=== PATIENT | male | born 1975 | race Caucasian/White ===

== ENCOUNTER 2017-07-13 17:29 | Inpatient (IN) | payer OTHER ==
[~2017-07-13] VITALS: Ht 175.3 cm; Wt 62.5 kg
[~2017-07-13 17:29] MED LIST: LEVEMIR100 U/ML SQ; NICORETTE GUM2 MG BC; NOVLOG SQ
[2017-07-13 18:29] LABS: MAGNESIUM 1.8 mg/dL (1.6-2.3)
[2017-07-13 18:35] VITALS: BP 134/97; PULSE 89; TEMP 97.8
[2017-07-13 20:00] VITALS: BP 138/99; PULSE 67; TEMP 97.5
[2017-07-13 21:05] LABS: CALCIUM 8.2 mg/dL (8.4-10.2); CREATININE, serum 0.56 mg/dL (0.66-1.25); POTASSIUM 3.6 mmol/L (3.4-5.0)
[2017-07-14] VITALS: BP 104/66; PULSE 61; TEMP 97.7
[2017-07-14 04:00] VITALS: BP 102/78; PULSE 69; TEMP 97.4
[2017-07-14 06:00] LABS: BASO # 0.1 (0.0-0.2); BASO % 0.5 % (0.0-2.0); EOS # 0.3 (0.0-0.7); EOS % 1.8 % (0-4.0); GRAN # 9.9 (1.4-6.5); GRAN % 67.6 % (42.2-75.2); HEMATOCRIT 41.1 % (42.0-52.0); HEMOGLOBIN 14.7 g/dl (13.5-18.0); LYMPH # 3.2 (1.2-3.4); LYMPH % 21.6 % (20.0-51.0); MEAN CELL VOLUME 86 fl (80.0-100.0); MEAN CORPUSCULAR HEMOGLOBIN 31 pg (27.0-31.0); MEAN CORPUSCULAR HGB CONC 36 g/dl (33.0-37.0); MEAN PLATELET VOLUME 8.7 fl (7.4-10.4); MONO # 1.2 (0.1-0.6); MONO % 8.1 % (1.7-9.3); PLATELET COUNT 334 K/mm3 (130-400); RED BLOOD COUNT 4.79 M/mm3 (4.20-5.60); REDCELL DISTRIBUTION WIDTH-CV 11.8 % (11.5-14.5)
[2017-07-14 06:14] LABS: CALCIUM 8.6 mg/dL (8.4-10.2); CREATININE, serum 0.65 mg/dL (0.66-1.25); POTASSIUM 3.2 mmol/L (3.4-5.0)
[2017-07-14 07:45] VITALS: BP 107/82; PULSE 61; TEMP 98
[2017-07-14 11:40] VITALS: BP 125/84; PULSE 65; TEMP 97.5
[2017-07-14 16:48] VITALS: BP 123/87; PULSE 76; TEMP 98.3
[2017-07-14 19:37] VITALS: BP 118/74; PULSE 72; TEMP 98
[2017-07-15] VITALS (7 sets, daily range): BP systolic 104–126; BP diastolic 54–89; PULSE 65–81; TEMP 97.6–98.4
[2017-07-15 06:42] LABS: BASO # 0.1 (0.0-0.2); BASO % 0.5 % (0.0-2.0); EOS # 0.2 (0.0-0.7); EOS % 1.9 % (0-4.0); GRAN # 7.2 (1.4-6.5); HEMATOCRIT 40.3 % (42.0-52.0); HEMOGLOBIN 14.5 g/dl (13.5-18.0); LYMPH # 2.8 (1.2-3.4); LYMPH % 25.4 % (20.0-51.0); MEAN CELL VOLUME 85 fl (80.0-100.0); MEAN CORPUSCULAR HEMOGLOBIN 31 pg (27.0-31.0); MEAN CORPUSCULAR HGB CONC 36 g/dl (33.0-37.0); MONO # 0.8 (0.1-0.6); MONO % 6.8 % (1.7-9.3); PLATELET COUNT 327 K/mm3 (130-400); RED BLOOD COUNT 4.74 M/mm3 (4.20-5.60); REDCELL DISTRIBUTION WIDTH-CV 11.6 % (11.5-14.5)
[2017-07-15 06:51] LABS: ALANINE AMINOTRANSFERASE 31 U/L (21-72); ALKALINE PHOSPHATASE 78 U/L (50-136); ANION GAP 12 mmol/L (7-16); AST,SGOT 21 U/L (15-37); BILIRUBIN,TOTAL < 0.1 mg/dL (0.0-1.0); BLOOD UREA NITROGEN 12 mg/dL (9-20); CALCIUM 8.5 mg/dL (8.4-10.2); CARBON DIOXIDE 27 mmol/L (22-30); CHLORIDE 98 mmol/L (98-107); CREATININE, serum 0.61 mg/dL (0.66-1.25); GLUCOSE 256 mg/dL (74-106); MAGNESIUM 1.9 mg/dL (1.6-2.3); POTASSIUM 3.5 mmol/L (3.4-5.0); SODIUM 137 mmol/L (137-145); TOTAL PROTEIN 5.6 gm/dL (6.4-8.2)
[2017-07-16 03:53] VITALS: BP 102/55; PULSE 68; TEMP 97.8
[2017-07-16 06:48] LABS: BASO # 0.1 (0.0-0.2); BASO % 0.9 % (0.0-2.0); EOS # 0.2 (0.0-0.7); EOS % 2.1 % (0-4.0); GRAN # 6.1 (1.4-6.5); GRAN % 59.3 % (42.2-75.2); HEMATOCRIT 40.5 % (42.0-52.0); HEMOGLOBIN 14.2 g/dl (13.5-18.0); LYMPH # 3.1 (1.2-3.4); LYMPH % 29.8 % (20.0-51.0); MEAN CELL VOLUME 88 fl (80.0-100.0); MEAN CORPUSCULAR HEMOGLOBIN 31 pg (27.0-31.0); MEAN CORPUSCULAR HGB CONC 35 g/dl (33.0-37.0); MEAN PLATELET VOLUME 9.2 fl (7.4-10.4); MONO # 0.8 (0.1-0.6); MONO % 7.6 % (1.7-9.3); PLATELET COUNT 329 K/mm3 (130-400); RED BLOOD COUNT 4.62 M/mm3 (4.20-5.60)
[2017-07-16 07:01] LABS: CALCIUM 8.6 mg/dL (8.4-10.2); CREATININE, serum 0.75 mg/dL (0.66-1.25); POTASSIUM 3.3 mmol/L (3.4-5.0)
[2017-07-16 07:38] VITALS: BP 111/57; PULSE 70; TEMP 97.9
[2017-07-16] MEDS ORDERED: LANCETS MC (10:55)
[2017-07-16] MEDS ORDERED: FREESTYLE PREC1 EAC5 MC (10:55)
[2017-07-16] MEDS ORDERED: GLUCOSE TEST ST1 DEV MC (10:55)
[2017-07-16] MEDS ORDERED: LEVEMIR100 U/ML SQ (10:57)
[2017-07-16] MEDS ORDERED: DOXYCYCLINE 10100 MG PO (10:58)
[2017-07-16 11:31] VITALS: BP 122/84; PULSE 75; TEMP 98.2
[2017-07-16] MEDS ORDERED: AMOXICILLIN 8751 TAB PO (12:36)
== END 2017-07-16 15:00 | disposition home or self-care (01) | DRG 638 ==
LOC: ICU 17:29 → MEDICAL 07-14 19:19
PROVIDERS: Internal Medicine; Nurse Practitioner; Physician Assistant
DX: E11.65 Type 2 diabetes mellitus with hyperglycemia (principal); L03.317 Cellulitis of buttock; E44.0 Moderate protein-calorie malnutrition; Z68.1 Body mass index [BMI] 19.9 or less, adult; L05.91 Pilonidal cyst without abscess; E87.6 Hypokalemia; F15.10 Other stimulant abuse, uncomplicated; Z91.14 Patient's other noncompliance with medication regimen; Z79.4 Long term (current) use of insulin; F17.210 Nicotine dependence, cigarettes, uncomplicated; Z59.0 Homelessness
CPT/HCPCS: 99223-AI; 99232-AI; 99239; J1650; J1815; J2543; J3370; J7050; J7070; Q9967

== ENCOUNTER 2017-08-19 16:29 | Emergency (ER) | payer OTHER ==
[~2017-08-19] VITALS: Ht 175.3 cm; Wt 63.6 kg
[~2017-08-19 16:29] MED LIST changes: +AMOXICILLIN 8751 TAB PO; +DOXYCYCLINE 10100 MG PO; +FREESTYLE PREC1 EAC5 MC; +GLUCOSE TEST ST1 DEV MC; +LANCETS MC
[2017-08-19 16:35] VITALS: TEMP 97.5
[2017-08-19 17:18] LABS: BASO # 0.1 (0.0-0.2); BASO % 0.5 % (0.0-2.0); EOS # 0.1 (0.0-0.7); EOS % 0.9 % (0-4.0); GRAN # 9.8 (1.4-6.5); GRAN % 70.1 % (42.2-75.2); HEMATOCRIT 46.7 % (42.0-52.0); HEMOGLOBIN 16.3 g/dl (13.5-18.0); LYMPH % 21.6 % (20.0-51.0); MEAN CELL VOLUME 88 fl (80.0-100.0); MEAN CORPUSCULAR HEMOGLOBIN 31 pg (27.0-31.0); MEAN CORPUSCULAR HGB CONC 35 g/dl (33.0-37.0); MEAN PLATELET VOLUME 8.5 fl (7.4-10.4); MONO # 0.9 (0.1-0.6); MONO % 6.1 % (1.7-9.3); PLATELET COUNT 326 K/mm3 (130-400); RED BLOOD COUNT 5.34 M/mm3 (4.20-5.60); REDCELL DISTRIBUTION WIDTH-CV 12.8 % (11.5-14.5)
[2017-08-19 17:26] LABS: ALANINE AMINOTRANSFERASE 26 U/L (21-72); ALBUMIN 4.5 gm/dL (3.5-5.0); ALKALINE PHOSPHATASE 117 U/L (50-136); ANION GAP 15 mmol/L (7-16); AST,SGOT 23 U/L (15-37); BILIRUBIN,TOTAL 0.7 mg/dL (0.0-1.0); BLOOD UREA NITROGEN 30 mg/dL (9-20); CALCIUM 10.9 mg/dL (8.4-10.2); CARBON DIOXIDE 26 mmol/L (22-30); CHLORIDE 97 mmol/L (98-107); CREATININE, serum 1.09 mg/dL (0.66-1.25); GLUCOSE 155 mg/dL (74-106); POTASSIUM 4.3 mmol/L (3.4-5.0); SODIUM 138 mmol/L (137-145); TOTAL PROTEIN 8.1 gm/dL (6.4-8.2)
[2017-08-19 17:29] LABS: C-REACTIVE PROTEIN < 0.5 mg/dL (0.0-0.9)
[2017-08-19 17:37] LABS: ACETONE,SERUM NEGATIVE
[2017-08-19 17:58] LABS: COLLECTION METHOD CLEAN CATCH
[2017-08-19 18:13] LABS: HYALINE CAST >12 /lpf; MUCOUS Present /lpf; PH 5 (5-8); SQUAMOUS EPITHELIAL 0-2 /hpf; URINE APPEARANCE Hazy; URINE BACTERIA None Seen /hpf; URINE BILIRUBIN Negative (NEGATIVE); URINE BLOOD 2+ (NEGATIVE); URINE COLOR Yellow; URINE GLUCOSE 2+ (NEGATIVE); URINE KETONE Negative (NEGATIVE); URINE LEUKOCYTE ESTERASE Negative (NEGATIVE); URINE NITRATE Negative (NEGATIVE); URINE PROTEIN(semi-quant) 1+ (NEGATIVE); URINE RBC 0-2 /hpf
[2017-08-19 19:29] VITALS: BP 1416/72; PULSE 81
== END 2017-08-19 19:34 | disposition home or self-care (01) ==
LOC: COL.ER 16:29
PROVIDERS: Emergency Medicine
DX: E11.9 Type 2 diabetes mellitus without complications (principal); F17.210 Nicotine dependence, cigarettes, uncomplicated; Z79.4 Long term (current) use of insulin
CPT/HCPCS: J7030

== ENCOUNTER 2017-10-01 18:53 | Inpatient (IN) | payer OTHER ==
[2017-10-01] VITALS (65 sets, daily range): BP systolic 123; BP diastolic 81; PULSE 84; TEMP 97.8; O2SAT 97–100
[~2017-10-01] VITALS: Ht 175.3 cm; Wt 65.2 kg
[2017-10-01 19:29] LABS: COLLECTION METHOD CLEAN CATCH
[2017-10-01 19:34] LABS: BASO # 0.1 (0.0-0.2); BASO % 0.4 % (0.0-2.0); EOS # 0.1 (0.0-0.7); EOS % 0.4 % (0-4.0); GRAN # 11.5 (1.4-6.5); GRAN % 83.8 % (42.2-75.2); HEMOGLOBIN 16.1 g/dl (13.5-18.0); LYMPH # 1.3 (1.2-3.4); LYMPH % 9.5 % (20.0-51.0); MEAN CELL VOLUME 87 fl (80.0-100.0); MEAN CORPUSCULAR HEMOGLOBIN 31 pg (27.0-31.0); MEAN CORPUSCULAR HGB CONC 36 g/dl (33.0-37.0); MEAN PLATELET VOLUME 8.7 fl (7.4-10.4); MONO # 0.7 (0.1-0.6); MONO % 5.2 % (1.7-9.3); PLATELET COUNT 332 K/mm3 (130-400); RED BLOOD COUNT 5.19 M/mm3 (4.20-5.60); REDCELL DISTRIBUTION WIDTH-CV 12.9 % (11.5-14.5)
[2017-10-01 19:36] LABS: MUCOUS Present /lpf; PH 5 (5-8); SQUAMOUS EPITHELIAL None Seen /hpf; URINE APPEARANCE Clear; URINE BACTERIA None Seen /hpf; URINE BILIRUBIN Negative (NEGATIVE); URINE BLOOD Negative (NEGATIVE); URINE COLOR Straw; URINE GLUCOSE 3+ (NEGATIVE); URINE KETONE 2+ (NEGATIVE); URINE LEUKOCYTE ESTERASE Negative (NEGATIVE); URINE NITRATE Negative (NEGATIVE); URINE PROTEIN(semi-quant) Negative (NEGATIVE); URINE RBC 0-2 /hpf; URINE UROBILINOGEN Negative (NEGATIVE)
[2017-10-01 19:44] LABS: ALANINE AMINOTRANSFERASE 33 U/L (21-72); ALBUMIN 4.8 gm/dL (3.5-5.0); ALKALINE PHOSPHATASE 132 U/L (50-136); ANION GAP 24 mmol/L (7-16); AST,SGOT 22 U/L (15-37); BILIRUBIN,TOTAL 0.8 mg/dL (0.0-1.0); BLOOD UREA NITROGEN 21 mg/dL (9-20); CALCIUM 9.3 mg/dL (8.4-10.2); CREATININE, serum 0.78 mg/dL (0.66-1.25); LIPASE 122 U/L (23-300); POTASSIUM 5.4 mmol/L (3.4-5.0); TOTAL PROTEIN 7.7 gm/dL (6.4-8.2)
[2017-10-01 19:47] LABS: CARBON DIOXIDE 10 mmol/L (22-30); CHLORIDE 85 mmol/L (98-107); SODIUM 119 mmol/L (137-145)
[2017-10-01 19:52] LABS: GLUCOSE 768 mg/dL (74-106)
[2017-10-01 19:55] LABS: ACETONE,SERUM LARGE
[2017-10-01 23:12] LABS: CALCIUM 8.3 mg/dL (8.4-10.2); CREATININE, serum 0.61 mg/dL (0.66-1.25); MAGNESIUM 1.9 mg/dL (1.6-2.3); PHOSPHOROUS 2.5 mg/dL (2.5-4.5); POTASSIUM 3.8 mmol/L (3.4-5.0)
[2017-10-02] VITALS (629 sets, daily range): BP systolic 105–128; BP diastolic 59–89; PULSE 65–90; TEMP 96.9–98.1; O2SAT 94–100
[2017-10-02 01:48] LABS: CALCIUM 8.2 mg/dL (8.4-10.2); CREATININE, serum 0.58 mg/dL (0.66-1.25); POTASSIUM 3.9 mmol/L (3.4-5.0)
[2017-10-02 03:34] LABS: CALCIUM 8.1 mg/dL (8.4-10.2); CREATININE, serum 0.52 mg/dL (0.66-1.25); POTASSIUM 3.6 mmol/L (3.4-5.0)
[2017-10-02 06:08] LABS: CALCIUM 8.4 mg/dL (8.4-10.2); CREATININE, serum 0.54 mg/dL (0.66-1.25); POTASSIUM 3.5 mmol/L (3.4-5.0)
[2017-10-02 07:51] LABS: CALCIUM 8.2 mg/dL (8.4-10.2); CREATININE, serum 0.49 mg/dL (0.66-1.25)
[2017-10-02 10:07] LABS: CALCIUM 8.1 mg/dL (8.4-10.2); CREATININE, serum 0.54 mg/dL (0.66-1.25)
[2017-10-02 11:41] LABS: CREATININE, serum 0.54 mg/dL (0.66-1.25); POTASSIUM 4.3 mmol/L (3.4-5.0)
[2017-10-02 13:43] LABS: CALCIUM 8.2 mg/dL (8.4-10.2); CREATININE, serum 0.53 mg/dL (0.66-1.25); POTASSIUM 3.6 mmol/L (3.4-5.0)
[2017-10-02 16:16] LABS: CALCIUM 8.1 mg/dL (8.4-10.2); CREATININE, serum 0.61 mg/dL (0.66-1.25); POTASSIUM 3.6 mmol/L (3.4-5.0)
[2017-10-02 17:52] LABS: CALCIUM 8.2 mg/dL (8.4-10.2); CREATININE, serum 0.67 mg/dL (0.66-1.25); POTASSIUM 3.5 mmol/L (3.4-5.0)
[2017-10-02 19:39] LABS: CREATININE, serum 0.7 mg/dL (0.66-1.25); POTASSIUM 3.7 mmol/L (3.4-5.0)
[2017-10-03] VITALS (291 sets, daily range): BP systolic 113–130; BP diastolic 66–84; PULSE 65–79; TEMP 97.3–98.6; O2SAT 83–100
[2017-10-03 05:18] LABS: BASO # 0.1 (0.0-0.2); BASO % 0.6 % (0.0-2.0); EOS # 0.1 (0.0-0.7); EOS % 1.3 % (0-4.0); GRAN # 5.9 (1.4-6.5); GRAN % 61.4 % (42.2-75.2); LYMPH # 2.7 (1.2-3.4); LYMPH % 27.5 % (20.0-51.0); MEAN CELL VOLUME 86 fl (80.0-100.0); MEAN CORPUSCULAR HGB CONC 36 g/dl (33.0-37.0); MEAN PLATELET VOLUME 8.5 fl (7.4-10.4); MONO # 0.9 (0.1-0.6); MONO % 8.9 % (1.7-9.3); RED BLOOD COUNT 4.03 M/mm3 (4.20-5.60); REDCELL DISTRIBUTION WIDTH-CV 12.9 % (11.5-14.5)
[2017-10-03 05:19] LABS: HEMATOCRIT 34.8 % (42.0-52.0); HEMOGLOBIN 12.4 g/dl (13.5-18.0); MEAN CORPUSCULAR HEMOGLOBIN 31 pg (27.0-31.0); PLATELET COUNT 186 K/mm3 (130-400)
[2017-10-03 05:28] LABS: CALCIUM 8.2 mg/dL (8.4-10.2); CREATININE, serum 0.53 mg/dL (0.66-1.25); POTASSIUM 3.4 mmol/L (3.4-5.0)
[2017-10-04 00:05] VITALS: BP 125/71; PULSE 61; TEMP 97.6
[2017-10-04 03:59] VITALS: BP 103/62; BP 97/60; PULSE 63; TEMP 97.9
[2017-10-04 06:21] LABS: BASO # 0.1 (0.0-0.2); BASO % 0.5 % (0.0-2.0); EOS # 0.1 (0.0-0.7); EOS % 1.1 % (0-4.0); GRAN # 6.4 (1.4-6.5); HEMATOCRIT 37.7 % (42.0-52.0); HEMOGLOBIN 13.2 g/dl (13.5-18.0); LYMPH % 21.1 % (20.0-51.0); MEAN CELL VOLUME 87 fl (80.0-100.0); MEAN CORPUSCULAR HEMOGLOBIN 31 pg (27.0-31.0); MEAN CORPUSCULAR HGB CONC 35 g/dl (33.0-37.0); MEAN PLATELET VOLUME 9.9 fl (7.4-10.4); MONO # 0.7 (0.1-0.6); MONO % 7.9 % (1.7-9.3); PLATELET COUNT 178 K/mm3 (130-400); RED BLOOD COUNT 4.32 M/mm3 (4.20-5.60); REDCELL DISTRIBUTION WIDTH-CV 12.7 % (11.5-14.5)
[2017-10-04 06:37] LABS: CREATININE, serum 0.57 mg/dL (0.66-1.25)
[2017-10-04 06:46] LABS: POTASSIUM 2.9 mmol/L (3.4-5.0)
[2017-10-04 07:57] VITALS: BP 115/63; PULSE 52; TEMP 97.4
[2017-10-04] MEDS ORDERED: LEVEMIR FLEX100 U/ML SQ (08:51)
[2017-10-04 11:17] VITALS: BP 110/72; PULSE 86; TEMP 97.8
== END 2017-10-04 15:56 | disposition home or self-care (01) | DRG 638 ==
LOC: COL.ER 18:53 → ICU 20:56 → MEDICAL 10-03 13:08
PROVIDERS: Emergency Medicine; Internal Medicine; Nurse Practitioner Family
DX: E11.10 Type 2 diabetes mellitus with ketoacidosis without coma (principal); E44.0 Moderate protein-calorie malnutrition; Z68.1 Body mass index [BMI] 19.9 or less, adult; E87.5 Hyperkalemia; D72.829 Elevated white blood cell count, unspecified; F15.10 Other stimulant abuse, uncomplicated; Z79.4 Long term (current) use of insulin
CPT/HCPCS: 99223-AI; 99233-AI; 99239; J1650; J1815; J3480; J7030

== ENCOUNTER 2019-03-01 06:58 | Inpatient (IN) | payer SELFPAY ==
[~2019-03-01] VITALS: Ht 175.3 cm; Wt 60.8 kg
[2019-03-01] VITALS (631 sets, daily range): BP systolic 104–128; BP diastolic 66–841; PULSE 67–88; TEMP 97.7–98; O2SAT 90–100
[~2019-03-01 06:58] MED LIST changes: +LEVEMIR FLEX100 U/ML SQ
[2019-03-01 08:00] LABS: COLLECTION METHOD CLEAN CATCH
[2019-03-01 08:03] LABS: BASO # 0.1 (0.0-0.2); BASO % 0.6 % (0.0-2.0); EOS # 0.1 (0.0-0.7); EOS % 0.7 % (0-4.0); GRAN # 8.4 (1.4-6.5); GRAN % 74.4 % (42.2-75.2); HEMATOCRIT 51.6 % (42.0-52.0); HEMOGLOBIN 17.4 g/dl (13.5-18.0); LYMPH # 2.1 (1.2-3.4); LYMPH % 18.1 % (20.0-51.0); MEAN CELL VOLUME 93 fl (80.0-100.0); MEAN CORPUSCULAR HEMOGLOBIN 31 pg (27.0-31.0); MEAN CORPUSCULAR HGB CONC 34 g/dl (33.0-37.0); MEAN PLATELET VOLUME 9.2 fl (7.4-10.4); MONO # 0.6 (0.1-0.6); PLATELET COUNT 252 K/mm3 (130-400); RED BLOOD COUNT 5.58 M/mm3 (4.20-5.60); REDCELL DISTRIBUTION WIDTH-CV 13.7 % (11.5-14.5)
[2019-03-01 08:12] LABS: MUCOUS Present /lpf; PH 5 (5-8); SQUAMOUS EPITHELIAL None Seen /hpf; URINE APPEARANCE Clear; URINE BACTERIA None Seen /hpf; URINE BILIRUBIN Negative (NEGATIVE); URINE BLOOD 1+ (NEGATIVE); URINE COLOR Straw; URINE GLUCOSE 3+ (NEGATIVE); URINE KETONE 2+ (NEGATIVE); URINE LEUKOCYTE ESTERASE Negative (NEGATIVE); URINE NITRATE Negative (NEGATIVE); URINE PROTEIN(semi-quant) 2+ (NEGATIVE); URINE RBC None Seen /hpf; URINE UROBILINOGEN Negative (NEGATIVE)
[2019-03-01 08:13] LABS: ALANINE AMINOTRANSFERASE 20 U/L (21-72); ALBUMIN 5.1 gm/dL (3.5-5.0); ALKALINE PHOSPHATASE 132 U/L (50-136); ANION GAP 26 mmol/L (7-16); AST,SGOT 14 U/L (15-37); BILIRUBIN,TOTAL 0.6 mg/dL (0.0-1.0); BLOOD UREA NITROGEN 16 mg/dL (9-20); CALCIUM 9.3 mg/dL (8.4-10.2); CHLORIDE 102 mmol/L (98-107); CREATININE, serum 0.67 (0.66-1.25); GLUCOSE 381 mg/dL (74-106); POTASSIUM 4.2 mmol/L (3.4-5.0); SODIUM 133 mmol/L (137-145)
[2019-03-01 08:22] LABS: CARBON DIOXIDE 5 mmol/L (22-30)
[2019-03-01 08:24] LABS: ACETONE,SERUM MODERATE
--- NOTE | 2019-03-01 08:53 | NUR ---
Carpet Winder responded to Social Service Consult in the Emergency Department. SW met with patient who advised he has been living back and forth between [place] and [place] and has trouble "sitting still" and staying in the same place for long. Patient was living in [place] with his ex-, but no longer lives with her. Patient has been staying with his mother in [place], but reports his mother will not allow him to stay much longer. Patient expressed interest in [facility] [facility]. SW inquired about medications and primary care. Patient states [facility] and when he was discharged they told him they sent his prescriptions to [facility], but when he got there they weren't called in. Patient states they tried to set him up with primary care but he did not follow through with any appointments. SW talked with patient about [facility]. Patient is somewhat agreeable. Patient reports he has not had insulin in about a month. SW addressed patient history of drug abuse. Patient states he has not used meth in a couple months but does use marijuana and drinks alcohol. SW advised patient that if he were to go to [facility], he would not be able to drink as they do random breathalyzers. Patient states this is fine. Patient asked if [facility] assists with counseling. SW talked with patient about [facility] but patient states he does not like [facility]. SW contacted [facility] and was advised patient would need to complete application packet prior to making an appointment. [facility] is closed for Jessenia but reopens the day after. SONIA followed up with ER physician who advised patient to be admitted. SW contacted Jeremy Financial Counselor who will review patient needs. SW to continue to follow.
[2019-03-01 09:46] LABS: TRICYCLIC ANTIDEPRESS URINE NEGATIVE
--- NOTE | 2019-03-01 10:09 | NUR ---
REPORT RECEIVED FROM DWIGHT BELTRAN FROM ED.
--- NOTE | 2019-03-01 11:20 | NUR ---
Stamping Press Operator met with patient to discuss discharge planning. SW met with patient earlier this morning and gathered some intake information at that time. Patient lives in [place] with his mother, Barb Hidalgo (ph#[phone]) and states his sister, Lidia Hidalgo also lives in town but that he does not know her phone number. Patient does not use any DME. Patient states he believes he completed DPOA-HC paperwork at [facility] but does not have a copy. Patient states DPOA-HC designates his ex- Yuliana (ph#[phone]) although patient states he doesn't really care who makes health care decisions for him if he were unable. SW contacted [facility] and was informed the medical records office is closed today and tomorrow. SV fiber product cutting machine operator advised SW could contact patient's PCP to look at chart but patient states he does not have PCP. SW to continue to follow.
[2019-03-01 11:29] LABS: MAGNESIUM 1.8 mg/dL (1.6-2.3); PHOSPHOROUS 3.5 mg/dL (2.5-4.5)
[2019-03-01 13:58] LABS: CALCIUM 8.5 mg/dL (8.4-10.2); CREATININE, serum 0.59 (0.66-1.25); POTASSIUM 4.2 mmol/L (3.4-5.0)
[2019-03-01 15:18] LABS: CALCIUM 8.4 mg/dL (8.4-10.2); CREATININE, serum 0.56 (0.66-1.25); POTASSIUM 4.1 mmol/L (3.4-5.0)
--- NOTE | 2019-03-01 16:45 | NUR ---
SPOKE WITH DR FRANCO REGARDING PATIENT. PATIENT STATES HE IS THIRSTY, GAP IS AT 16, LAST BS 256. DR FRANCO STATES PATIENT CAN HAVE ICE CHIPS AND TO SWITCH IVF TO D51/2NS AT 150.
[2019-03-01 17:31] LABS: CALCIUM 8.4 mg/dL (8.4-10.2); CREATININE, serum 0.5 (0.66-1.25); POTASSIUM 3.7 mmol/L (3.4-5.0)
--- NOTE | 2019-03-01 19:30 | NUR ---
Bedside report received from RUBY Garland. All lines reviewed and care assumed at this time. Patient is sitting up in bed, watching TV. Denies any pain or discomfort, requesting something to eat and drink as soon as he can.
[2019-03-01 19:40] LABS: CALCIUM 8.5 mg/dL (8.4-10.2); CREATININE, serum 0.5 (0.66-1.25); POTASSIUM 3.6 mmol/L (3.4-5.0)
[2019-03-01 21:32] LABS: CALCIUM 8.5 mg/dL (8.4-10.2); CREATININE, serum 0.44 (0.66-1.25); POTASSIUM 3.5 mmol/L (3.4-5.0)
--- NOTE | 2019-03-01 22:30 | NUR ---
Discussed blood sugar levels with hospitalist Melina. Decided to d/c insulin gtt and give Levemir SQ-see orders. Patient denies any nausea, vomiting, pain, or discomfort, still requesting something to drink and eat. Given okay to advance diet as tolerated per [employer].
[2019-03-01 23:43] LABS: CALCIUM 8.3 mg/dL (8.4-10.2); CREATININE, serum 0.43 (0.66-1.25); POTASSIUM 3.9 mmol/L (3.4-5.0)
[2019-03-02] VITALS (1127 sets, daily range): BP systolic 111–128; BP diastolic 74–94; PULSE 67–103; TEMP 97.9–98.5; O2SAT 79–100
[2019-03-02 01:27] LABS: CALCIUM 8.4 mg/dL (8.4-10.2); CREATININE, serum 0.43 (0.66-1.25); POTASSIUM 3.5 mmol/L (3.4-5.0)
[2019-03-02 03:11] LABS: CALCIUM 8.4 mg/dL (8.4-10.2); CREATININE, serum 0.44 (0.66-1.25); POTASSIUM 3.4 mmol/L (3.4-5.0)
--- NOTE | 2019-03-02 04:00 | NUR ---
Patient sleeping in small amounts but often disturbed with finger sticks and lab draws. Pleasant and cooperative throughout. Requested coffee and to sit on the toilet for a BM-tolerated well and was successful. Patient denies pain or discomfort, trasnferred well, tolerating PO well, see EMAR for insulin administration.
[2019-03-02 05:36] LABS: CALCIUM 8.7 mg/dL (8.4-10.2); CREATININE, serum 0.4 (0.66-1.25); POTASSIUM 3.3 mmol/L (3.4-5.0)
--- NOTE | 2019-03-02 07:00 | NUR ---
BEDSIDE REPORT RECEIVED FROM RUBY AUGUSTINE. D5 IVF STOPPED. PATIENT HUNGRY, AWAITING BREAKFAST, HE HAS NO COMPLAINTS. WILL CONTINUE TO MONITOR.
[2019-03-02 07:24] LABS: CALCIUM 8.7 mg/dL (8.4-10.2); CREATININE, serum 0.4 (0.66-1.25); POTASSIUM 3.1 mmol/L (3.4-5.0)
--- NOTE | 2019-03-02 12:00 | NUR ---
DR. FRANCO ROUNDS AT THIS TIME
--- NOTE | 2019-03-02 17:00 | NUR ---
EDUCATION GIVEN TO PATIENT REGARDING TYPE 2 DIABETES, DIABETIC DIET AND USING INSULIN AT HOME. I ALSO GIVE HIM GENERAL CONTACT INFORMATION FOR THE [facility] IN [place], [place].
--- NOTE | 2019-03-02 17:10 | NUR ---
UPDATE GIVEN TO DR. FRANCO AT THIS TIME. NO NEW ORDERS RECEIVED.
--- NOTE | 2019-03-02 19:24 | NUR ---
Report given to RUBY Lu. Patient lying in bed with no complaints. Care turned over at this time.
--- NOTE | 2019-03-02 20:00 | NUR ---
Assessment complete; denies any pain or shortness of breath. No abdominal pain or nausea. Patient cooperative and alert and oriented X 4 during assessment. VS stable; will continue to monitor.
[2019-03-03] VITALS (129 sets, daily range): BP systolic 91–112; BP diastolic 64–90; PULSE 74–97; TEMP 97.6–98.7; O2SAT 94–100
--- NOTE | 2019-03-03 00:47 | NUR ---
Awake resting and watching TV; requested jello and diet soda. No complaints or concerns at this time.
[2019-03-03 05:26] LABS: BASO % 0.5 % (0.0-2.0); EOS % 0.5 % (0-4.0); GRAN # 6.2 (1.4-6.5); GRAN % 71.4 % (42.2-75.2); HEMATOCRIT 42.8 % (42.0-52.0); LYMPH # 1.6 (1.2-3.4); LYMPH % 18.9 % (20.0-51.0); MEAN CORPUSCULAR HGB CONC 36 g/dl (33.0-37.0); MEAN PLATELET VOLUME 9.2 fl (7.4-10.4); MONO # 0.7 (0.1-0.6); MONO % 8.4 % (1.7-9.3); PLATELET COUNT 246 K/mm3 (130-400); REDCELL DISTRIBUTION WIDTH-CV 13.4 % (11.5-14.5)
[2019-03-03 05:27] LABS: HEMOGLOBIN 15.3 g/dl (13.5-18.0); MEAN CELL VOLUME 87 fl (80.0-100.0); MEAN CORPUSCULAR HEMOGLOBIN 31 pg (27.0-31.0)
[2019-03-03 05:35] LABS: CALCIUM 8.9 mg/dL (8.4-10.2); CREATININE, serum 0.47 (0.66-1.25); POTASSIUM 3.2 mmol/L (3.4-5.0)
--- NOTE | 2019-03-03 13:38 | NUR ---
Bone Char Puller met with patient to review discharge plan. Patient to transfer to the floor today. Patient states upon discharge he plans to return to his mom's home. Patient states his mom or his sister can provide transportation upon discharge. SW discussed with patient the importance of following up with primary care upon discharge. Patient expressed understanding. SW to continue to follow.
--- NOTE | 2019-03-03 20:00 | NUR ---
Patient arrived from the ICU at 1999. Patient came up via wheelchair and was able to walk to the bed. Patient requested a shower, supplies given. Poor dentation noted, with missing front teeth. Paient has IV in the right forearm. Discussed plan of care with patient including checking blood sugars, patient verbalized understanding.
--- NOTE | 2019-03-03 20:09 | NUR ---
Report given to RUBY Christine at 1955. Patient transferred to unit via wheelchair with belongings in hand. Pleasant and cooperative, denies pain or discomfort.
[2019-03-04 04:12] VITALS: BP 105/68; PULSE 73; TEMP 97.6
[2019-03-04 08:30] VITALS: BP 106/68; PULSE 68; TEMP 97.2
[2019-03-04] MEDS ORDERED: HUMULIN 70/3100 U/M1 SQ (09:07)
--- NOTE | 2019-03-04 10:27 | NUR ---
Patient has been walking laps on the floor and is eager to discharge. Is asking for blood glucose to be monitored right now and encouraged him to wait until closer to discharge as social service agency director is setting up assistance with his insulin. He did agree. Has been frequently stopping at the nurses station to check on progress of discharge and social service agency director assistance. Did notify patient that I will speak with him as soon as everything is set up. He agreed.
--- NOTE | 2019-03-04 10:32 | NUR ---
The patient is to discharge back to his mother's home today, 03/04. SONIA followed up with the patient about primary care and medication assistance. The patient was agreeable to being set up at [facility] in [place]. The patient was secured an appointment at [facility] on 03/15/19 at 1045. Records faxed to [facility]. SONIA provided [facility]'s registration packet to the patient. SONIA discussed the importance of following up at [facility] and continuing care there. This SONIA had also provided a med voucher to the patient on 07/16/17 for insulin and insulin supplies. The patient reports that he has since lost his glucometer and the other supplies, due to moving back and fourth. SONIA informed the patient that we would be able to provide a med vouncher this time. A med voucher to [facility] for his HumuLin, Glucomenter, strips, lancets, syringes, and alcohol wipes was provided to the patient. Total: $197.85. SONIA faxed the med voucher and scripts to Karen at [facility]. No additional needs at this time.
--- NOTE | 2019-03-04 12:31 | NUR ---
Patient discharged at 1135, did not have a ride and stated he was walking to his sister's house which was a few blocks away. He has been given all of the paperwork to fill out for his new PCP along with the usual discharge papers. Patient did not want for me to go over education with him as he states he has been given the information multiple times. Personal belongings taken with patient.
== END 2019-03-04 11:35 | disposition home or self-care (01) | DRG 639 ==
LOC: COL.ER 06:58 → ICU 08:55 → MEDICAL 03-03 19:58
PROVIDERS: Physician Assistant; Student in an Organized Health Care Education/Training Program; ADMIT Emergency Medicine
DX: E10.10 Type 1 diabetes mellitus with ketoacidosis without coma (principal); F15.10 Other stimulant abuse, uncomplicated; F17.200 Nicotine dependence, unspecified, uncomplicated; Z91.14 Patient's other noncompliance with medication regimen
CPT/HCPCS: 99222-AI; 99231-AI; 99233-AI; 99239; J1650; J1815; J3480; J7030

== ENCOUNTER 2019-06-07 17:10 | Inpatient (IN) | payer OTHER ==
[~2019-06-07] VITALS: Ht 175.3 cm; Wt 63.6 kg
[2019-06-07] VITALS (167 sets, daily range): BP systolic 151–158; BP diastolic 104–114; PULSE 105–107; TEMP 96.5; O2SAT 65–100
[~2019-06-07 17:10] MED LIST changes: +HUMULIN 70/3100 U/M1 SQ
--- NOTE | 2019-06-07 17:30 | NUR ---
Patient arrives to ICU with [facility]. He is drowsy, but answers to conversation. He is settled in room and given call light. Hospitalist called for orders.
[2019-06-07 17:49] LABS: BLOOD UREA NITROGEN 43 mg/dL (9-20); CALCIUM 8.8 mg/dL (8.4-10.2); CHLORIDE 94 mmol/L (98-107); CREATININE, serum 1.77 (0.66-1.25); POTASSIUM 4.4 mmol/L (3.4-5.0); SODIUM 130 mmol/L (137-145)
[2019-06-07 17:58] LABS: ARTERIAL BLD GAS O2 SATURATION 97.9 % (92-100); ARTERIAL BLD GAS TCO2 CT 5.8; ARTERIAL BLOOD GAS HCO3 5.3 meq/L (22-26); ARTERIAL BLOOD GAS PCO2 14.6 mmHg (35-45); ARTERIAL BLOOD GAS PO2 106.3 mmHg (80-100); ARTERIAL BLOOD GAS pH 7.18 (7.35-7.45)
[2019-06-07 17:59] LABS: CARBON DIOXIDE < 5 mmol/L (22-30); GLUCOSE 697 mg/dL (74-106)
--- NOTE | 2019-06-07 18:00 | NUR ---
Hospitalist notified of arrival. Orders received. Labs drawn. Blood glucose reading "Hi" on accucheck machine. Will wait for lab results from lab.
[2019-06-07 18:07] LABS: MAGNESIUM 2.6 mg/dL (1.6-2.3); PHOSPHOROUS 4.6 mg/dL (2.5-4.5)
--- NOTE | 2019-06-07 18:30 | NUR ---
KENNEDY Grossman here to see patient. Orders received.
--- NOTE | 2019-06-07 19:00 | NUR ---
Blood glucose taken at this time. It has dropped more than 200 in the last hour, according to MAR, will hold for 30 minutes then restart gtt at new rate per protocol.
--- NOTE | 2019-06-07 19:30 | NUR ---
Report given to RUBY Delacruz.
[2019-06-07 20:31] LABS: CREATININE, serum 0.95 (0.66-1.25); POTASSIUM 3.7 mmol/L (3.4-5.0)
[2019-06-07 20:33] LABS: TRICYCLIC ANTIDEPRESS URINE NEGATIVE
[2019-06-07 22:37] LABS: CALCIUM 7.8 mg/dL (8.4-10.2); CREATININE, serum 0.82 (0.66-1.25); POTASSIUM 3.7 mmol/L (3.4-5.0)
[2019-06-08] VITALS (493 sets, daily range): BP systolic 124–152; BP diastolic 86–99; PULSE 21–113; TEMP 97.5–99.2; O2SAT 82–100
[2019-06-08 02:20] LABS: CALCIUM 7.8 mg/dL (8.4-10.2); CREATININE, serum 0.67 (0.66-1.25); POTASSIUM 3.5 mmol/L (3.4-5.0)
[2019-06-08 04:27] LABS: HEMATOCRIT 43.5 % (42.0-52.0); HEMOGLOBIN 16.1 g/dl (13.5-18.0); MEAN CELL VOLUME 84 fl (80.0-100.0); MEAN CORPUSCULAR HEMOGLOBIN 31 pg (27.0-31.0); MEAN CORPUSCULAR HGB CONC 37 g/dl (33.0-37.0); MEAN PLATELET VOLUME 8.5 fl (7.4-10.4); PLATELET COUNT 221 K/mm3 (130-400); REDCELL DISTRIBUTION WIDTH-CV 12.3 % (11.5-14.5)
[2019-06-08 04:36] LABS: CALCIUM 7.8 mg/dL (8.4-10.2); CREATININE, serum 0.62 (0.66-1.25); POTASSIUM 3.2 mmol/L (3.4-5.0)
[2019-06-08 04:49] LABS: BAND 2 % (0-10); LYMPHOCYTE 6 % (20.0-51.0); NEUTROPHILS 84 % (42.0-75.2); PLATELET ESTIMATE NORMAL (NORMAL)
--- NOTE | 2019-06-08 07:20 | NUR ---
Report provided to Susan Downs RN. Pt resting in bed at this time with urinal in hand.
[2019-06-08 07:29] LABS: CALCIUM 7.5 mg/dL (8.4-10.2); CREATININE, serum 0.54 (0.66-1.25); POTASSIUM 3.1 mmol/L (3.4-5.0)
[2019-06-08 08:35] LABS: CALCIUM 7.7 mg/dL (8.4-10.2); CREATININE, serum 0.47 (0.66-1.25)
[2019-06-08 10:33] LABS: CALCIUM 7.8 mg/dL (8.4-10.2); CREATININE, serum 0.49 (0.66-1.25)
[2019-06-08 10:35] LABS: POTASSIUM 2.9 mmol/L (3.4-5.0)
--- NOTE | 2019-06-08 12:47 | NUR ---
SONIA met with the patient to complete initial intake. The patient lives in [place] with his mother, Barb. The patient denies DME usage and is independent with ADLs. The last time the patient was seen at [facility] in [place] was in October of 2017 and he had a no show on March 15 of this year. SONIA set up a follow up appointment at [facility] in [place] for the patient. It is on June 13 at 1300. The patient does not have advanced directives in the EMR and was not interested in DPOA-HC form at this time. The patient tested positive for methamphetamines. SW discussed the drug use with the patient. The patient states he uses daily and was going back and forth with wanting resources for treatment. The patient then said he was tired and did not want treatment at this time. The patient is needing insulin. SONIA completed the [employer] application with the patient then and faxed it to (# ). Will continue to monitor.
[2019-06-08 14:41] LABS: CREATININE, serum 0.48 (0.66-1.25); POTASSIUM 3.2 mmol/L (3.4-5.0)
--- NOTE | 2019-06-08 17:47 | NUR ---
Immediately following call to request assist to bathroom, pt ambulates unassisted to bathroom. Incontinent of larg amount of dark brown/black liquid and semi-solid stool. Assisted with bathing and returns to bed. Awaiting bed assignment for transfer to Medical floor. Off insulin gtt since 1114 potassium replacement changed to PO now that patient is tolerating oral intake.
--- NOTE | 2019-06-08 19:26 | NUR ---
Report called to medical. Pt will transfer to room 318 this evening.
--- NOTE | 2019-06-08 19:52 | NUR ---
pt unable to tolerate IV potassium replacment. Order placed to redraw potassium to replace based on current level
--- NOTE | 2019-06-08 21:00 | NUR ---
Received patient via wheelchair from ICU. Patient ia alert and oriented. With INT on right hand, left AC and left thumb. On fall precaution. Bed alarm on and call light within reach. Urinal given to patient. He is a bit sleepy. Noted to have some missing teeth. Denies any pain.
[2019-06-08 21:19] LABS: HEMATOCRIT 43.6 % (42.0-52.0); HEMOGLOBIN 16.3 g/dl (13.5-18.0)
[2019-06-09 03:47] VITALS: BP 113/93; PULSE 106; TEMP 98.4
--- NOTE | 2019-06-09 06:04 | NUR ---
Patient had an uneventful night. He is asleep throughout the night. Denies any pain. He uses urinal on the bedside. Still for stool occult blood. Will endorse to day shift nurse.
[2019-06-09 07:09] LABS: HEMATOCRIT 43.1 % (42.0-52.0); HEMOGLOBIN 15.9 g/dl (13.5-18.0); MEAN CELL VOLUME 84 fl (80.0-100.0); MEAN CORPUSCULAR HEMOGLOBIN 31 pg (27.0-31.0); MEAN CORPUSCULAR HGB CONC 37 g/dl (33.0-37.0); MEAN PLATELET VOLUME 8.7 fl (7.4-10.4); PLATELET COUNT 203 K/mm3 (130-400); RED BLOOD COUNT 5.15 M/mm3 (4.20-5.60); REDCELL DISTRIBUTION WIDTH-CV 12.6 % (11.5-14.5)
[2019-06-09 07:19] LABS: CALCIUM 8.2 mg/dL (8.4-10.2); CREATININE, serum 0.51 (0.66-1.25); MAGNESIUM 2.1 mg/dL (1.6-2.3); POTASSIUM 3.3 mmol/L (3.4-5.0)
[2019-06-09 07:23] VITALS: BP 135/90; PULSE 92; TEMP 97.5
[2019-06-09 08:10] LABS: BAND 20 % (0-10); LYMPHOCYTE 11 % (20.0-51.0); NEUTROPHILS 66 % (42.0-75.2); PLATELET ESTIMATE NORMAL (NORMAL)
--- NOTE | 2019-06-09 08:45 | NUR ---
Patient is asleep in bed, did have to arouse to administer insulin. Did briefly keep eyes open then closed again. Facial expression is relaxed indicating there is no signs of pain. Call light and personal items are within reach.
--- NOTE | 2019-06-09 11:02 | NUR ---
Canteen Operator confirmed with [facility] that patient's insulin will be shipped today to arrive tomorrow. Patient's insulin will be delivered to [facility]. SONIA provided update to MARYSE Frazier. SONIA to continue to follow.
[2019-06-09 11:27] VITALS: BP 131/74; PULSE 98; TEMP 97.9
[2019-06-09 16:34] VITALS: BP 121/74; PULSE 96; TEMP 98.1
--- NOTE | 2019-06-09 19:06 | NUR ---
Patient is laying in bed with eyes closed, did request gatorade. Call placed to dietary who will be delivering later. Did eat some supper. Insulin administered as ordered. Urinal emptied and amount shown as recorded. Call light and personal items are withn reach.
--- NOTE | 2019-06-09 20:00 | NUR ---
received report from RUBY Uribe. Alert and oriented x4. Denies any pain or discomfort at this time. INT to Lt thumb and RH intact, flushed, dressing CDI. IV to LAC intact with fluids infusing, dressing CDI. Meds administered. Needs met at this time. Call light within reach.
[2019-06-09 21:09] VITALS: BP 118/70; PULSE 98; TEMP 98.4
[2019-06-10] VITALS (7 sets, daily range): BP systolic 100–120; BP diastolic 52–79; PULSE 77–103; TEMP 98–98.3
--- NOTE | 2019-06-10 06:20 | NUR ---
Needs attended to throughout the night. Call light within reach.
[2019-06-10 06:29] LABS: BASO % 0.2 % (0.0-2.0); EOS % 0.2 % (0-4.0); GRAN # 10.4 (1.4-6.5); GRAN % 80.1 % (42.2-75.2); HEMATOCRIT 37.5 % (42.0-52.0); LYMPH # 1.5 (1.2-3.4); LYMPH % 11.3 % (20.0-51.0); MEAN CELL VOLUME 86 fl (80.0-100.0); MEAN CORPUSCULAR HEMOGLOBIN 31 pg (27.0-31.0); MEAN CORPUSCULAR HGB CONC 36 g/dl (33.0-37.0); MEAN PLATELET VOLUME 9.3 fl (7.4-10.4); MONO % 7.4 % (1.7-9.3); PLATELET COUNT 167 K/mm3 (130-400); RED BLOOD COUNT 4.38 M/mm3 (4.20-5.60); REDCELL DISTRIBUTION WIDTH-CV 12.7 % (11.5-14.5)
[2019-06-10 06:33] LABS: HEMOGLOBIN 13.5 g/dl (13.5-18.0)
[2019-06-10 06:49] LABS: CALCIUM 7.8 mg/dL (8.4-10.2); CREATININE, serum 0.71 (0.66-1.25); POTASSIUM 3.2 mmol/L (3.4-5.0)
--- NOTE | 2019-06-10 06:52 | NUR ---
Report given to RUBY Levin.
--- NOTE | 2019-06-10 14:59 | NUR ---
Basic Acoustic Analyst confirmed with Pily, Pharmacist that patient's insulin had been delivered to the hospital. Per Pily, patient will be provided with syringes upon discharge and will have enough insulin to last him until follow up appointment with [facility] on the . SW to continue to follow.
--- NOTE | 2019-06-10 18:17 | NUR ---
Patient has rested in bed during the day today, patient declines sitting in the recliner. Patient continent of bladder with urinal, did not have a bowel movement during this shift. Patient reports gas, does say he feels bloated, but does not feel the urge to have a bowel movement. IVF continue per order. Patient continues to deny pain or needs, call light within reach.
--- NOTE | 2019-06-10 20:00 | NUR ---
Received report from RUBY Levin. Assessment complete. Alert and oriented x4. Thuy any pain at this time. Scheduled meds administered. Insulin not required at this time for BG 110. IV to LAC intact with fluids infusing, dressing CDI. Needs met at this time. Call light within reach. Urinal at bedside table.
[2019-06-11 03:33] VITALS: BP 106/56; PULSE 72; TEMP 98.1
--- NOTE | 2019-06-11 05:59 | NUR ---
met pt needs throughout the night. No complaints made. Call light within reach.
--- NOTE | 2019-06-11 07:02 | NUR ---
Report given to RUBY Tatum.
[2019-06-11 07:28] LABS: BASO % 0.2 % (0.0-2.0); EOS # 0.1 (0.0-0.7); GRAN # 7.5 (1.4-6.5); GRAN % 72.7 % (42.2-75.2); LYMPH # 1.9 (1.2-3.4); LYMPH % 18.7 % (20.0-51.0); MEAN CELL VOLUME 86 fl (80.0-100.0); MEAN CORPUSCULAR HEMOGLOBIN 30 pg (27.0-31.0); MEAN CORPUSCULAR HGB CONC 35 g/dl (33.0-37.0); MEAN PLATELET VOLUME 9.3 fl (7.4-10.4); MONO # 0.7 (0.1-0.6); PLATELET COUNT 162 K/mm3 (130-400); RED BLOOD COUNT 4.28 M/mm3 (4.20-5.60); REDCELL DISTRIBUTION WIDTH-CV 12.6 % (11.5-14.5)
[2019-06-11 07:35] VITALS: BP 136/89; PULSE 85; TEMP 98.3
[2019-06-11 07:36] LABS: CALCIUM 8.2 mg/dL (8.4-10.2); CREATININE, serum 0.53 (0.66-1.25); POTASSIUM 3.1 mmol/L (3.4-5.0)
[2019-06-11 07:50] LABS: HEMATOCRIT 36.7 % (42.0-52.0)
--- NOTE | 2019-06-11 11:10 | NUR ---
PATIENT IS ALERT AND ORIENTED. DENIES ANY PAIN AT THIS TIME. BLOOD SUGAR IS 402. I ADMINISTERED 14 UNITS AND INFORMED . BLOOD SUGAR WAS RECHECKED 1 HR LATER, BLOOD SUGAR WAS 333. PATIENT IS RESTING IN BED AT THIS MOMENT
[2019-06-11 11:58] VITALS: BP 105/65; PULSE 74; TEMP 98.1
[2019-06-11 16:09] VITALS: BP 107/57; PULSE 70; TEMP 97.6
--- NOTE | 2019-06-11 19:52 | NUR ---
Patient was informed of his no free water restriction. IV fluid discontinued, right wrist iv got infiltrated, it was removed. patient still have a Left AC IV. Patient was educated about the triad of DKA.
[2019-06-11 20:18] VITALS: BP 99/61; PULSE 76; TEMP 98.1
[2019-06-11 23:36] VITALS: BP 145/77; PULSE 83; TEMP 97.5
[2019-06-12 03:39] VITALS: BP 120/78; PULSE 76; TEMP 98
--- NOTE | 2019-06-12 04:00 | NUR ---
recieved report from day shift. patient was resting in his bed. dietary was called and two powerades were brought up to the nurses station. patient was 234 on blood sugar and 6 units of insulin was given. patient called out a couple hours later and stated that he was sweaty so blood sugar was rechecked and he was 60. orange juice, graghm crackers, and peanut butter given to patient. after snacks the patient emir to 80. patient went through 3 bottles of powerade and several diet pepsi's through the night. will report off to day shift upon their arrival.
[2019-06-12 07:47] VITALS: BP 127/92; PULSE 76; TEMP 97.4
[2019-06-12 08:17] LABS: BASO % 0.3 % (0.0-2.0); EOS # 0.1 (0.0-0.7); EOS % 1.6 % (0-4.0); GRAN % 57.8 % (42.2-75.2); HEMOGLOBIN 13.1 g/dl (13.5-18.0); LYMPH # 2.5 (1.2-3.4); LYMPH % 29.3 % (20.0-51.0); MEAN CELL VOLUME 87 fl (80.0-100.0); MEAN CORPUSCULAR HEMOGLOBIN 31 pg (27.0-31.0); MEAN CORPUSCULAR HGB CONC 36 g/dl (33.0-37.0); MEAN PLATELET VOLUME 8.4 fl (7.4-10.4); MONO # 0.9 (0.1-0.6); MONO % 10.3 % (1.7-9.3); PLATELET COUNT 212 K/mm3 (130-400); RED BLOOD COUNT 4.24 M/mm3 (4.20-5.60); REDCELL DISTRIBUTION WIDTH-CV 12.6 % (11.5-14.5)
[2019-06-12 08:35] LABS: HEMATOCRIT 36.9 % (42.0-52.0)
[2019-06-12 09:40] LABS: CALCIUM 8.2 mg/dL (8.4-10.2); CREATININE, serum 1.11 (0.66-1.25); POTASSIUM 3.4 mmol/L (3.4-5.0)
--- NOTE | 2019-06-12 10:05 | NUR ---
Pt resting in bed during bedside report. Pt states no need for anything. Assessment completed. No further concerns at this time.
--- NOTE | 2019-06-12 10:58 | NUR ---
SONIA followed up with Sky. Sky reports that he resides with his mother but could also go to his sisters home. When prompting Sky on getting a hold of them he reports that his phone is . SW asked him to provide any next of kin. Sky report he does not have any. When asking if she will be able to stay with family, he reported that he is "tammi homeless." SONIA contacted the local emergency usp and they have a male bed available. SONIA notifed Sky of that option and he stated that he has not used it in the past. Sky maintains that he can go to his families home. SONIA spoke with Sky's ex via the phone Hunter . She reports that Sky can not come to her home due to his drug use, aggression, and inability to care for himself. Hunter denies giving SW contact information for Sky's sister or mother but reports that she will leave them messages to have them call SONIA back. SONIA has not made any contact with other family. Sky refused going to usp. Educated Sky on proceedure if he went to homeless usp and [facility] verifying his identification.
[2019-06-12 11:36] VITALS: BP 128/87; PULSE 74; TEMP 97.3
[2019-06-12] MEDS ORDERED: PROTONIX 40MG T40 MG PO (13:29)
[2019-06-12] MEDS ORDERED: LANCETS MC (13:30)
[2019-06-12] MEDS ORDERED: FREESTYLE PREC1 EAC5 MC (13:30)
[2019-06-12] MEDS ORDERED: GLUCOSE TEST ST1 DEV MC (13:30)
[2019-06-12] MEDS ORDERED: HUMULIN 70/3100 U/M1 SQ (13:32)
[2019-06-12 15:44] VITALS: BP 127/91; PULSE 67; TEMP 97.7
--- NOTE | 2019-06-12 15:56 | NUR ---
Issued voucher for patient to obtain Glucose meter and testing strips with [facility] locally. SONIA faxed order and voucher to
== END 2019-06-12 14:15 | disposition home or self-care (01) | DRG 638 ==
LOC: ICU 17:10 → MEDICAL 06-08 21:37
PROVIDERS: Hospitalist; Nurse Practitioner Family; Physician Assistant; ADMIT Student in an Organized Health Care Education/Training Program
DX: E10.10 Type 1 diabetes mellitus with ketoacidosis without coma (principal); K92.2 Gastrointestinal hemorrhage, unspecified; N17.9 Acute kidney failure, unspecified; E87.1 Hypo-osmolality and hyponatremia; R65.10 Systemic inflammatory response syndrome (SIRS) of non-infectious origin without acute organ dysfunction; E86.0 Dehydration; E87.5 Hyperkalemia; E87.6 Hypokalemia; K59.00 Constipation, unspecified; F19.10 Other psychoactive substance abuse, uncomplicated; F17.200 Nicotine dependence, unspecified, uncomplicated; F15.10 Other stimulant abuse, uncomplicated; Z59.0 Homelessness; Z91.19 Patient's noncompliance with other medical treatment and regimen; Z79.4 Long term (current) use of insulin
CPT/HCPCS: 99223-AI; 99232-AI; 99233-AI; 99239; C9113; J1815; J3480; J7030

== ENCOUNTER 2020-01-23 15:43 | Inpatient (IN) | payer OTHER ==
[~2020-01-23] VITALS: Ht 175.3 cm; Wt 66.4 kg
[~2020-01-23 15:43] MED LIST changes: +PROTONIX 40MG T40 MG PO
[2020-01-23 16:54] LABS: MEAN CELL VOLUME 86 fl (80.0-100.0); MEAN CORPUSCULAR HGB CONC 34 g/dl (33.0-37.0); MEAN PLATELET VOLUME 9.7 fl (7.4-10.4); PLATELET COUNT 280 K/mm3 (130-400); REDCELL DISTRIBUTION WIDTH-CV 13.7 % (11.5-14.5)
[2020-01-23 16:55] LABS: HEMATOCRIT 60.1 % (42.0-52.0); MEAN CORPUSCULAR HEMOGLOBIN 29 pg (27.0-31.0)
[2020-01-23 16:56] LABS: HEMOGLOBIN 20.5 g/dl (13.5-18.0)
[2020-01-23 17:08] LABS: ALANINE AMINOTRANSFERASE 18 U/L (4-49); ALBUMIN 5.8 gm/dL (3.5-5.0); ALKALINE PHOSPHATASE 193 U/L (50-136); ANION GAP 32 mmol/L (7-16); AST,SGOT 24 U/L (15-37); BILIRUBIN,TOTAL 0.9 mg/dL (0.0-1.0); BLOOD UREA NITROGEN 19 mg/dL (9-20); CALCIUM 9.8 mg/dL (8.4-10.2); CHLORIDE 90 mmol/L (98-107); CREATININE, serum 1.19 (0.66-1.25); LIPASE 27 U/L (23-300); POTASSIUM 5.3 mmol/L (3.4-5.0); SODIUM 130 mmol/L (137-145); TOTAL PROTEIN 9.6 gm/dL (6.4-8.2)
[2020-01-23 17:15] LABS: CARBON DIOXIDE 8 mmol/L (22-30); GLUCOSE 404 mg/dL (74-106)
[2020-01-23 17:19] LABS: BAND 9 % (0-10); LYMPHOCYTE 9 % (20.0-51.0); NEUTROPHILS 81 % (42.0-75.2); PLATELET ESTIMATE NORMAL (NORMAL)
[2020-01-23 17:35] LABS: ACETONE,SERUM MODERATE
[2020-01-23 19:34] LABS: COLLECTION METHOD CLEAN CATCH
[2020-01-23 19:43] LABS: MUCOUS Present /lpf; PH 5 (5-8); SQUAMOUS EPITHELIAL 0-2 /hpf; URINE APPEARANCE Clear; URINE BACTERIA None Seen /hpf; URINE BILIRUBIN Negative (NEGATIVE); URINE BLOOD Negative (NEGATIVE); URINE COLOR Straw; URINE GLUCOSE 3+ (NEGATIVE); URINE KETONE 2+ (NEGATIVE); URINE LEUKOCYTE ESTERASE Negative (NEGATIVE); URINE NITRATE Negative (NEGATIVE); URINE PROTEIN(semi-quant) 2+ (NEGATIVE); URINE RBC 0-2 /hpf; URINE UROBILINOGEN Negative (NEGATIVE)
[2020-01-23 19:48] LABS: CALCIUM 8.7 mg/dL (8.4-10.2); CREATININE, serum 0.83 (0.66-1.25); POTASSIUM 4.8 mmol/L (3.4-5.0)
[2020-01-23 19:53] LABS: TRICYCLIC ANTIDEPRESS URINE NEGATIVE
[2020-01-23 21:59] LABS: CALCIUM 8.9 mg/dL (8.4-10.2); CREATININE, serum 0.8 (0.66-1.25); POTASSIUM 4.5 mmol/L (3.4-5.0)
[2020-01-24] VITALS (247 sets, daily range): BP systolic 125–146; BP diastolic 86–96; PULSE 96–104; TEMP 97.8–98; O2SAT 82–100
[2020-01-24 02:22] LABS: CREATININE, serum 0.64 (0.66-1.25)
[2020-01-24 04:19] LABS: CALCIUM 9.1 mg/dL (8.4-10.2); CREATININE, serum 0.66 (0.66-1.25); POTASSIUM 3.9 mmol/L (3.4-5.0)
[2020-01-24 05:19] LABS: HEMATOCRIT 50.3 % (42.0-52.0); MEAN CELL VOLUME 82 fl (80.0-100.0); MEAN CORPUSCULAR HEMOGLOBIN 29 pg (27.0-31.0); MEAN CORPUSCULAR HGB CONC 36 g/dl (33.0-37.0); MEAN PLATELET VOLUME 8.3 fl (7.4-10.4); PLATELET COUNT 255 K/mm3 (130-400); RED BLOOD COUNT 6.12 M/mm3 (4.20-5.60); REDCELL DISTRIBUTION WIDTH-CV 12.8 % (11.5-14.5)
[2020-01-24 05:28] LABS: HEMOGLOBIN 17.9 g/dl (13.5-18.0)
[2020-01-24 05:45] LABS: BAND 9 % (0-10); LYMPHOCYTE 9 % (20.0-51.0); NEUTROPHILS 79 % (42.0-75.2); PLATELET ESTIMATE NORMAL (NORMAL)
[2020-01-24 06:51] LABS: CREATININE, serum 0.66 (0.66-1.25); POTASSIUM 4.6 mmol/L (3.4-5.0)
[2020-01-24 10:34] LABS: CALCIUM 8.8 mg/dL (8.4-10.2); CREATININE, serum 0.81 (0.66-1.25); POTASSIUM 4.9 mmol/L (3.4-5.0)
--- NOTE | 2020-01-24 13:15 | NUR ---
RECEIVED REPORT FROM RUYB MEREDITH FROM ER. AWAITING ARRIVAL OF PT TO ICU 2.
--- NOTE | 2020-01-24 14:08 | NUR ---
PT ARRIVES TO ICU 2 VIA STRETCHER ON RA. PT TRANSFERS SELF TO ICU BED, STEADY GAIT NOTED. PLACED ON BEDSIDE CONTINUOUS MONITOR. CALL LIGHT WITHIN REACH. VSS. SEE GTT FLOWSHEET.
--- NOTE | 2020-01-24 15:17 | NUR ---
SONIA met with the patient to discuss discharge plan. The patient states that he stays on and off with his mother, Barb (ph#[phone]) in [place], friends in [place], and his [id number] in [place]. He reports independence with ADLs and has crutches. The patient discharged from the hospital back in June,. He was set up with a follow up appointment at [facility] and insulin was delivered here for the patient through the program, [facility]. A voucher for a glucometer and supplies was also provided to him. SONIA contacted [facility] to inquire if the patient went to his appointments. The guest relations receptionist reports that the patient had an appointment in June and March and he did not show up for either. SONIA addressed this with the patient. The patient states that he did not go, because he cannot sit still and does not stay in places long. SONIA asked the patient about getting set up there again, when he is ready to discharge. The patient states that he will probably not go. The patient states that he gets his insulin from [facility]. He states that he does not have to have a prescription for it and it is more afforable. He states that his mother helps him pay for it. The patient states that he will probably go and stay with his mother when he discharges. He states that he normally hitchhikes to get to [place] or [place]. The patient states that he still has the glucometer. SONIA collaborated with the pharmacist, Marta, about utilizing the [facility] again for the patient. Marta and her team plans to look into this and let SONIA know. The patient does not have a DPOA-HC and he was not interested in completing one at this time. He states that he is not and does not have any children. He states that he is okay with his mother being his decision maker. SONIA also addressed the patient's drug use. The patient tested positive for methamphetamines, amphetamines, and cannabinoids. The patient reports that he last used meth a couple days ago. The patient states that he is not interested in any treatment for his drug use and not interested in quitting. SONIA attempted to contact the patient's mother. SONIA left her a voicemail. The patient's mother, Barb, then returned SONIA's phone call. Barb confirms that the patient will stay with her off and on. She states that he has been in [place] for a few weeks now. She is agreeable with the patient returning back home with her upon discharge. Barb states that she works at [employer] as a field sampling technician and the best time to get a hold of her is around 1600. SONIA to continue to follow.
[2020-01-24 15:47] LABS: CALCIUM 8.6 mg/dL (8.4-10.2); CREATININE, serum 0.73 (0.66-1.25); POTASSIUM 4.1 mmol/L (3.4-5.0)
--- NOTE | 2020-01-24 16:11 | NUR ---
DR VALDEZ NOITIFIED OF PT'S REQUEST FOR A NICOTINE PATCH, NEW ORDERS RECEIVED.
--- NOTE | 2020-01-24 19:00 | NUR ---
Received report from RUBY Valdovinos. Patient is resting quietly in bed watching television. Denies any pain or discomfort. Vitals within normal limits. Insulin currently infusing at 11 mL/hr to the LAC. No further needs noted at this time.
--- NOTE | 2020-01-24 20:23 | NUR ---
INSULIN DRIP WAS PUT ON HOLD FOR 30 MINS AND RE-STARTED AT 6 UNITS/HR PER PROTOCOL. NEXT CHECK AT 2200.
[2020-01-24 21:33] LABS: CALCIUM 8.8 mg/dL (8.4-10.2); CREATININE, serum 0.68 (0.66-1.25); POTASSIUM 4.2 mmol/L (3.4-5.0)
[2020-01-25] VITALS (333 sets, daily range): BP systolic 130–136; BP diastolic 82–97; PULSE 79–91; TEMP 98–98.5; O2SAT 80–100
[2020-01-25 05:18] LABS: BASO % 0.2 % (0.0-2.0); EOS # 0.1 (0.0-0.7); EOS % 0.3 % (0-4.0); GRAN # 12.3 (1.4-6.5); GRAN % 75.3 % (42.2-75.2); HEMATOCRIT 42.7 % (42.0-52.0); LYMPH # 2.6 (1.2-3.4); MEAN CELL VOLUME 82 fl (80.0-100.0); MEAN CORPUSCULAR HEMOGLOBIN 29 pg (27.0-31.0); MEAN CORPUSCULAR HGB CONC 36 g/dl (33.0-37.0); MEAN PLATELET VOLUME 8.5 fl (7.4-10.4); MONO # 1.3 (0.1-0.6); MONO % 7.8 % (1.7-9.3); PLATELET COUNT 190 K/mm3 (130-400); RED BLOOD COUNT 5.19 M/mm3 (4.20-5.60); REDCELL DISTRIBUTION WIDTH-CV 12.9 % (11.5-14.5)
[2020-01-25 05:25] LABS: HEMOGLOBIN 15.2 g/dl (13.5-18.0)
[2020-01-25 05:33] LABS: CALCIUM 8.5 mg/dL (8.4-10.2); CREATININE, serum 0.57 (0.66-1.25); MAGNESIUM 2.1 mg/dL (1.6-2.3); POTASSIUM 3.4 mmol/L (3.4-5.0)
--- NOTE | 2020-01-25 07:45 | NUR ---
Report given to RUBY Fisher.
--- NOTE | 2020-01-25 10:14 | NUR ---
SW attended clinical rounds. The patient is to discharge today, 01/24. The patient states that he plans on returning to his mother's home. He states that he has a vial of insulin at home already, that normally lasts him a month. The hospitalist discussed follow up care and getting set up at [facility] again. The patient refused follow up care and did not want to get up at [facility] or anywhere else. SW attempted to contact and update the patient's mother, Barb. SW left her a voicemail. No additional needs at this time.
--- NOTE | 2020-01-25 10:40 | NUR ---
ORDERS TO D/C INSULIN DRIP. GAVE LEVIMIR. PATIENT IS DISCHARGING TO HOME.
--- NOTE | 2020-01-25 11:03 | NUR ---
First visit from the yeast washer. Vp Talent Management prayed for patient outside of door. No other needs right now.
--- NOTE | 2020-01-25 11:11 | NUR ---
PAtient discharged to home. Recieved taxi voucher and waiting in ER entrance for taxi. IV removed. All discharge paperwork given and gone over with patient.
== END 2020-01-25 11:11 | disposition home or self-care (01) | DRG 639 ==
LOC: COL.ER 15:43 → ICU 01-24 13:13
PROVIDERS: Emergency Medicine; Internal Medicine; Physician Assistant; ADMIT Hospitalist
DX: E10.10 Type 1 diabetes mellitus with ketoacidosis without coma (principal); Z91.14 Patient's other noncompliance with medication regimen; D72.829 Elevated white blood cell count, unspecified; D75.1 Secondary polycythemia; I10 Essential (primary) hypertension; F15.10 Other stimulant abuse, uncomplicated; F12.10 Cannabis abuse, uncomplicated; S82.891D Other fracture of right lower leg, subsequent encounter for closed fracture with routine healing; F17.210 Nicotine dependence, cigarettes, uncomplicated; E86.0 Dehydration; Z20.828 Contact with and (suspected) exposure to other viral communicable diseases
CPT/HCPCS: 99223-AI; 99233-AI; 99239; J0696; J1650; J1815; J2405; J3480; J7030

== ENCOUNTER 2021-07-09 09:12 | Inpatient (IN) | payer SELFPAY ==
[2021-07-09] VITALS (534 sets, daily range): BP systolic 127–139; BP diastolic 74–82; PULSE 87–89; TEMP 97.7–98; O2SAT 95–100
[~2021-07-09] VITALS: Ht 175.3 cm; Wt 69.1 kg
[~2021-07-09 09:12] MED LIST changes: +BASAGLAR K100 UNIT/1 SQ; +HUMALOG100 U/ML SQ
[2021-07-09 09:44] LABS: BASO # 0.1 K/mm3 (0.0-0.2); BASO % 0.4 % (0.0-2.0); EOS # 0.1 K/mm3 (0.0-0.7); EOS % 0.4 % (0.0-4.0); GRAN # 15.3 K/mm3 (1.4-6.5); GRAN % 83.9 % (42.2-75.2); LYMPH % 10.8 % (20.0-51.0); MEAN CELL VOLUME 90 fl (80.0-100.0); MEAN CORPUSCULAR HGB CONC 34 g/dl (33.0-37.0); MEAN PLATELET VOLUME 9.2 fl (7.4-10.4); MONO # 0.7 K/mm3 (0.1-0.6); MONO % 3.9 % (1.7-9.3); PLATELET COUNT 350 K/mm3 (130-400); REDCELL DISTRIBUTION WIDTH-CV 12.4 % (11.5-14.5)
[2021-07-09 09:47] LABS: HEMATOCRIT 55.1 % (42.0-52.0); HEMOGLOBIN 18.5 g/dl (13.5-18.0); MEAN CORPUSCULAR HEMOGLOBIN 30 pg (27-31)
[2021-07-09 09:51] LABS: ACETONE,SERUM MODERATE
[2021-07-09 10:01] LABS: ALANINE AMINOTRANSFERASE 14 U/L (0-55); ALBUMIN 4.6 gm/dL (3.5-5.0); ALKALINE PHOSPHATASE 189 U/L (40-150); ANION GAP 25 mmol/L (7-16); AST,SGOT 14 U/L (5-34); BILIRUBIN,TOTAL 0.7 mg/dL (0.2-1.2); BLOOD UREA NITROGEN 19 mg/dL (9-21); CHLORIDE 93 mmol/L (98-107); CREATININE, serum 1.61 mg/dL (0.72-1.25); LIPASE 9 U/L (8-78); SODIUM 126 mmol/L (136-145); TOTAL PROTEIN 8.2 gm/dL (6.2-8.1)
[2021-07-09 10:04] LABS: TROPONIN-I < 0.010 ng/mL (0.00-0.033)
[2021-07-09 10:05] LABS: CARBON DIOXIDE 8 mmol/L (22-29); GLUCOSE 463 mg/dL (70-99)
[2021-07-09 10:17] LABS: COLLECTION METHOD CLEAN CATCH
[2021-07-09 10:32] LABS: MUCOUS Present (NOT PRESENT); PH 5 (5-8); SQUAMOUS EPITHELIAL 0-2 /hpf (0-10); URINE APPEARANCE Clear (CLEAR/HAZY); URINE BACTERIA None Seen /hpf (NONE SEEN); URINE BILIRUBIN Negative (NEGATIVE); URINE BLOOD Negative (NEGATIVE); URINE COLOR Yellow (YELLOW); URINE GLUCOSE 3+ (NEGATIVE); URINE KETONE 2+ (NEGATIVE); URINE LEUKOCYTE ESTERASE Negative (NEGATIVE); URINE NITRATE Negative (NEGATIVE); URINE PROTEIN(semi-quant) 1+ (NEGATIVE); URINE UROBILINOGEN Negative (NEGATIVE)
[2021-07-09 10:44] LABS: TRICYCLIC ANTIDEPRESS URINE NEGATIVE
--- NOTE | 2021-07-09 12:43 | NUR ---
Arrived to the unit from the ER. Self-transfered from ER cot to ICU bed without difficulty. Alert and oriented. Reports being "tired" but denies any other concerns or complaints at this time.
[2021-07-09] MEDS ORDERED: INSULIN AS100 UNIT/5 SQ (13:29)
--- NOTE | 2021-07-09 15:03 | NUR ---
Clarified DKA orders with Dr. Jerome. Will finish NS bolus and then can switch over to D5 1/2 NS once BG less than 250.
[2021-07-09 15:19] LABS: CALCIUM 7.5 mg/dL (8.4-10.2); CREATININE, serum 0.89 mg/dL (0.72-1.25); POTASSIUM 3.7 mmol/L (3.5-4.5)
[2021-07-09 17:10] LABS: CALCIUM 7.2 mg/dL (8.4-10.2); CREATININE, serum 0.87 mg/dL (0.72-1.25)
--- NOTE | 2021-07-09 19:00 | NUR ---
Received report from RUBY Lu.
[2021-07-09 19:29] LABS: CALCIUM 7.4 mg/dL (8.4-10.2); CREATININE, serum 0.85 mg/dL (0.72-1.25); POTASSIUM 3.8 mmol/L (3.5-4.5)
--- NOTE | 2021-07-09 19:35 | NUR ---
Patient resting quietly in bed watching television. Patient is alert and oriented; he denies any pain or discomfort. Vitals within normal limits. Receiving insulin drip and IVF at this time. Sandwhich box provided per patient's request. Call light within reach, bed in lowest position. No further needs noted at this time.
[2021-07-09 20:53] LABS: CALCIUM 7.5 mg/dL (8.4-10.2); CREATININE, serum 0.84 mg/dL (0.72-1.25); POTASSIUM 3.6 mmol/L (3.5-4.5)
[2021-07-10] VITALS (513 sets, daily range): BP systolic 101–133; BP diastolic 62–85; PULSE 76–91; TEMP 97.1–98.3; O2SAT 95–100
[2021-07-10 04:14] LABS: BASO % 0.3 % (0.0-2.0); EOS # 0.2 K/mm3 (0.0-0.7); EOS % 1.2 % (0.0-4.0); GRAN # 10.1 K/mm3 (1.4-6.5); GRAN % 74.4 % (42.2-75.2); HEMATOCRIT 39.8 % (42.0-52.0); LYMPH # 2.3 K/mm3 (1.2-3.4); LYMPH % 16.6 % (20.0-51.0); MEAN CELL VOLUME 86 fl (80.0-100.0); MEAN CORPUSCULAR HGB CONC 35 g/dl (33.0-37.0); MEAN PLATELET VOLUME 8.8 fl (7.4-10.4); MONO % 7.2 % (1.7-9.3); RED BLOOD COUNT 4.64 M/mm3 (4.20-5.60); REDCELL DISTRIBUTION WIDTH-CV 12.3 % (11.5-14.5)
[2021-07-10 04:17] LABS: HEMOGLOBIN 14.1 g/dl (13.5-18.0); MEAN CORPUSCULAR HEMOGLOBIN 30 pg (27-31); PLATELET COUNT 230 K/mm3 (130-400)
[2021-07-10 04:32] LABS: CALCIUM 8.1 mg/dL (8.4-10.2); CREATININE, serum 0.75 mg/dL (0.72-1.25); MAGNESIUM 1.7 mg/dL (1.6-2.6); POTASSIUM 3.3 mmol/L (3.5-4.5)
--- NOTE | 2021-07-10 07:33 | NUR ---
Report given to RUBY Perera.
--- NOTE | 2021-07-10 09:15 | NUR ---
farmworker cranberry met with patient to complete intake. Patient reports that since his last admission he has been staying with his mother Barb ([phone]), his sister Jaylin ([phone]) and SALOMON. Patient states that he has not been going to [facility] for care needs and could not remember the last time he was there. Renettaent did state that he is still getting his insulin from [facility] and states that he has been keeping up with him. Patient states that he is now legally . This SW addressed the patients Methamphetamine and THC use. Asked the patient if he is currently seeking treatment or if he is interested in treatment. Patient denies help to receive treatment and states " i don't want to stop using".
--- NOTE | 2021-07-10 11:40 | NUR ---
Pt was brought the medical floor at 1140 by grocery store manager RUBY Crandall. The patien't denies any pain at this time, but does request water. VSS, blood sugar attained for lunch.
--- NOTE | 2021-07-10 16:49 | NUR ---
REPORT RECEIVED FROM CRISTA BELTRAN ET NET LEAD ARCHITECT.
--- NOTE | 2021-07-10 17:52 | NUR ---
PT SITTING IN BED WITH HOB ELEVATED, EATING DINNER. SLIDING SCALE INSULIN ADMINISTERED INTO PT'S ABDOMEN. PT IS PLEASANT ET COOPERATIVE, STATES THAT HE HAD EARLIER HAD A HEADACHE BUT IT HAS NOW SUBSIDED, WILL NOTIFY STAFF IF PAIN RETURNS ET TYLENOL IS NEEDED. PT USES URINAL, URINE IS YELLOW ET CLEAR. RESPIRATIONS UNLABORED ON RA. PT DENIES NEEDS. CALL LIGHT WITHIN REACH.
--- NOTE | 2021-07-10 22:45 | NUR ---
PATIENT CONTINUES TO VOID THROUGHOUT EDUCATED ON HYPERGLYCEMIA AND ENCOURAGED PATIENT ON ALTERNATIVE DIET INTAKE DUE TO INCREASE BLOOD SUGAR. REMAINS SINUS ON TELE. NO C/O PAIN PATIENT DOES HAVE COUGH WHICH PRN PROVIDED CONTINUES ON ABX THERAPY FOR ABSCESS TO MOUTH. WILL CONTNIUE OT MONITOR FOR ANY CHANGES.
--- NOTE | 2021-07-11 04:27 | NUR ---
PATIENT SLEEPING THROUGHOUT SHIFT COMPLIANT WITH ABX THERAPY. WILL CONTINUE TO MONITOR FOR ANY S/S HYPER/HYPOGLYCEMIA. PATIENT REFUSING SCD'S AT THIS TIME. WILL CONTINUE TO MONITOR.
[2021-07-11 04:55] VITALS: BP 109/69; PULSE 73; TEMP 97.8
[2021-07-11 07:28] VITALS: BP 114/68; PULSE 79; TEMP 97.5
--- NOTE | 2021-07-11 08:15 | NUR ---
PT PLEASANT, AOX4, LARGE RED LUMP TO L SIDE OF MOUTH, PT MISSING SOME TEETH, SOME SPEECH GARBLED AND HARD TO UNDERSTAND, R GREAT TOE AMPUTATION HEALED, ASSESSMENT PERFORMED, MEDICATIONS GIVEN, INSULIN GIVEN, PT ALREADY ATE BREAKFAST.
[2021-07-11 08:37] LABS: CALCIUM 8.2 mg/dL (8.4-10.2); CREATININE, serum 0.76 mg/dL (0.72-1.25); POTASSIUM 3.7 mmol/L (3.5-4.5)
[2021-07-11 08:49] LABS: BASO % 0.4 % (0.0-2.0); EOS # 0.2 K/mm3 (0.0-0.7); EOS % 1.9 % (0.0-4.0); GRAN # 6.9 K/mm3 (1.4-6.5); GRAN % 69.3 % (42.2-75.2); HEMATOCRIT 42.9 % (42.0-52.0); LYMPH # 1.9 K/mm3 (1.2-3.4); MEAN CELL VOLUME 87 fl (80.0-100.0); MEAN CORPUSCULAR HEMOGLOBIN 30 pg (27-31); MEAN CORPUSCULAR HGB CONC 35 g/dl (33.0-37.0); MONO # 0.9 K/mm3 (0.1-0.6); MONO % 9.1 % (1.7-9.3); PLATELET COUNT 217 K/mm3 (130-400); RED BLOOD COUNT 4.94 M/mm3 (4.20-5.60); REDCELL DISTRIBUTION WIDTH-CV 12.3 % (11.5-14.5)
--- NOTE | 2021-07-11 10:05 | NUR ---
Initial visit; Patient thanked Software Developer Mid Level for visiting him. Sky has to be uncomfortable and is very sweet and mannerly. Software Developer Mid Level wishes him well and will keep him in her prayers.
[2021-07-11 11:18] VITALS: BP 120/89; PULSE 83; TEMP 97.6
--- NOTE | 2021-07-11 11:22 | NUR ---
BS RELAYED TO ME FROM MEAT AND SEAFOOD MANAGER, INC SUGAR REPORTED TO KENNY SERRA. SHE REPORTED INC IN NPH. INC NPH AND NOVOLOG SLIDING SCALE GIVEN WITH LUNCH.
[2021-07-11] MEDS ORDERED: MONODOX100 PO (11:40)
[2021-07-11] MEDS ORDERED: CLEOCIN HCL300 MG PO (11:43)
[2021-07-11] MEDS ORDERED: INSULIN AS100 UNIT/5 SQ (11:44)
--- NOTE | 2021-07-11 12:42 | NUR ---
NEPTALI ORNELAS CALLED FOR PICC REMOVAL BEFORE DISCHARGE
--- NOTE | 2021-07-11 14:39 | NUR ---
picc line removed, pt aox4, educated on imp of stopping drug use and taking bs. pt did not appear interested in education. pt escorted out via wheelchair, no other needs
== END 2021-07-11 14:46 | disposition home or self-care (01) | DRG 638 ==
LOC: COL.ER 09:12 → ICU 11:40 → MEDICAL 07-10 11:47
PROVIDERS: Emergency Medicine; Physician Assistant; ADMIT Internal Medicine
PROC: 02HV33Z Insertion of Infusion Device into Superior Vena Cava, Percutaneous Approach (ICD-10-PCS; principal; 2021-07-09)
DX: E10.10 Type 1 diabetes mellitus with ketoacidosis without coma (principal); N17.9 Acute kidney failure, unspecified; E87.1 Hypo-osmolality and hyponatremia; E86.0 Dehydration; F17.210 Nicotine dependence, cigarettes, uncomplicated; D72.829 Elevated white blood cell count, unspecified; D75.1 Secondary polycythemia; K04.7 Periapical abscess without sinus; Z20.822 Contact with and (suspected) exposure to COVID-19; Z91.14 Patient's other noncompliance with medication regimen; Z23 Encounter for immunization
CPT/HCPCS: 99223-AI; 99233-AI; 99239; C1751; C1892; J1815; J3475; J7030; J7120

== ENCOUNTER 2021-08-13 19:40 | Inpatient (IN) | payer SELFPAY ==
[~2021-08-13] VITALS: Ht 175.3 cm; Wt 65.4 kg
[2021-08-13] VITALS (78 sets, daily range): BP systolic 158; BP diastolic 102; PULSE 99; TEMP 97.7; O2SAT 98–100
[~2021-08-13 19:40] MED LIST changes: +CLEOCIN HCL300 MG PO; +INSULIN AS100 UNIT/5 SQ; +MONODOX100 PO
[2021-08-13 20:55] LABS: MEAN CELL VOLUME 91 fl (80.0-100.0); MEAN CORPUSCULAR HGB CONC 34 g/dl (33.0-37.0); MEAN PLATELET VOLUME 9.1 fl (7.4-10.4); PLATELET COUNT 304 K/mm3 (130-400); REDCELL DISTRIBUTION WIDTH-CV 12.9 % (11.5-14.5)
[2021-08-13 20:59] LABS: ACETONE,SERUM MODERATE
[2021-08-13 20:59] LABS: COLLECTION METHOD CLEAN CATCH
[2021-08-13 21:04] LABS: HEMATOCRIT 57.2 % (42.0-52.0); HEMOGLOBIN 19.4 g/dl (13.5-18.0); MEAN CORPUSCULAR HEMOGLOBIN 31 pg (27-31)
[2021-08-13 21:07] LABS: ALANINE AMINOTRANSFERASE 22 U/L (0-55); ALBUMIN 4.5 gm/dL (3.5-5.0); ALKALINE PHOSPHATASE 187 U/L (40-150); ANION GAP 29 mmol/L (7-16); AST,SGOT 18 U/L (5-34); BILIRUBIN,TOTAL 0.8 mg/dL (0.2-1.2); BLOOD UREA NITROGEN 25 mg/dL (9-21); CALCIUM 8.6 mg/dL (8.4-10.2); CHLORIDE 92 mmol/L (98-107); SODIUM 126 mmol/L (136-145); TOTAL PROTEIN 8.5 gm/dL (6.2-8.1)
[2021-08-13 21:09] LABS: GLUCOSE 537 mg/dL (70-99)
[2021-08-13 21:10] LABS: CARBON DIOXIDE 5 mmol/L (22-29); POTASSIUM 6.2 mmol/L (3.5-4.5)
[2021-08-13 21:10] LABS: MUCOUS Present (NOT PRESENT); PH 5 (5-8); SQUAMOUS EPITHELIAL None Seen /hpf (0-10); URINE APPEARANCE Clear (CLEAR/HAZY); URINE BACTERIA None Seen /hpf (NONE SEEN); URINE BILIRUBIN Negative (NEGATIVE); URINE BLOOD 1+ (NEGATIVE); URINE COLOR Yellow (YELLOW); URINE GLUCOSE 3+ (NEGATIVE); URINE KETONE 2+ (NEGATIVE); URINE LEUKOCYTE ESTERASE Negative (NEGATIVE); URINE NITRATE Negative (NEGATIVE); URINE PROTEIN(semi-quant) 2+ (NEGATIVE); URINE RBC 0-2 /hpf (0-2); URINE UROBILINOGEN Negative (NEGATIVE)
[2021-08-13 21:19] LABS: BAND 9 % (0-10); LYMPHOCYTE 1 % (20.0-51.0); NEUTROPHILS 89 % (42.0-75.2); PLATELET ESTIMATE NORMAL (NORMAL)
--- NOTE | 2021-08-13 21:54 | NUR ---
Received report from ED nurseMabel.
--- NOTE | 2021-08-13 22:35 | NUR ---
Patient arrives to ICU room 6 via ED stretcher. Patient is drowsy but alert and oriented. He is able to ambulate to ICU bed with standby assistance. Initial BP of 158/102, other vitals within normal limits; patient on room air. Insulin drip infusing at 5 units/hr upon arrival. Initial BG of 473; drip titrated according to protocol.
--- NOTE | 2021-08-13 23:00 | NUR ---
Patient belongings include street clothes and shoes, a cell phone, a pack of cigarettes, a retail asset protection specialist, a spoon, a pocket knife, and a wallet with $24.87. Patient denies having dentures, hearing aids, glasses, or removable jewelery on his person.
[2021-08-14] VITALS (1274 sets, daily range): BP systolic 132–148; BP diastolic 79–92; PULSE 89–105; TEMP 97.1–98.6; O2SAT 84–100
[2021-08-14 00:24] LABS: CREATININE, serum 1.49 mg/dL (0.72-1.25); POTASSIUM 4.8 mmol/L (3.5-4.5)
[2021-08-14 04:55] LABS: HEMATOCRIT 44.8 % (42.0-52.0); MEAN CELL VOLUME 87 fl (80.0-100.0); MEAN CORPUSCULAR HEMOGLOBIN 31 pg (27-31); MEAN CORPUSCULAR HGB CONC 35 g/dl (33.0-37.0); MEAN PLATELET VOLUME 8.3 fl (7.4-10.4); PLATELET COUNT 306 K/mm3 (130-400); RED BLOOD COUNT 5.17 M/mm3 (4.20-5.60); REDCELL DISTRIBUTION WIDTH-CV 12.8 % (11.5-14.5)
[2021-08-14 05:14] LABS: CALCIUM 7.4 mg/dL (8.4-10.2); CREATININE, serum 1.27 mg/dL (0.72-1.25); POTASSIUM 4.3 mmol/L (3.5-4.5)
[2021-08-14 05:18] LABS: HEMOGLOBIN 15.8 g/dl (13.5-18.0)
[2021-08-14 05:44] LABS: BAND 2 % (0-10); LYMPHOCYTE 8 % (20.0-51.0); NEUTROPHILS 86 % (42.0-75.2); PLATELET ESTIMATE NORMAL (NORMAL)
--- NOTE | 2021-08-14 08:07 | NUR ---
REPORT RECEIVED FROM RUBY BUCHANAN; PATIENT CURRENTLY ON INSULIN DRIP AT A RATE OF 8 UNITS AND D5 1/2 NS WITH POTASSIUM FOR FLUIDS. BLOOD GLUCOSE LEVELS ARE TRENDING DOWN AND PATIENT HAS NO COMPLAINTS OF NAUSEA OR PAIN THIS MORNING. PATIENT CURRENTLY RESTING COMFORTABLY IN BED.
[2021-08-14 08:30] LABS: CALCIUM 7.9 mg/dL (8.4-10.2); CREATININE, serum 1.08 mg/dL (0.72-1.25); POTASSIUM 4.1 mmol/L (3.5-4.5)
[2021-08-14 12:51] LABS: CALCIUM 8.2 mg/dL (8.4-10.2); CREATININE, serum 0.92 mg/dL (0.72-1.25); POTASSIUM 3.7 mmol/L (3.5-4.5)
[2021-08-15] VITALS (1184 sets, daily range): BP systolic 122–134; BP diastolic 77–89; PULSE 70–92; TEMP 97.5–98.2; O2SAT 90–100
[2021-08-15 06:34] LABS: BASO % 0.2 % (0.0-2.0); EOS # 0.1 K/mm3 (0.0-0.7); EOS % 0.3 % (0.0-4.0); GRAN # 14.4 K/mm3 (1.4-6.5); GRAN % 79.9 % (42.2-75.2); HEMATOCRIT 44.7 % (42.0-52.0); HEMOGLOBIN 15.7 g/dl (13.5-18.0); LYMPH # 1.9 K/mm3 (1.2-3.4); LYMPH % 10.7 % (20.0-51.0); MEAN CELL VOLUME 85 fl (80.0-100.0); MEAN CORPUSCULAR HEMOGLOBIN 30 pg (27-31); MEAN CORPUSCULAR HGB CONC 35 g/dl (33.0-37.0); MEAN PLATELET VOLUME 8.6 fl (7.4-10.4); MONO # 1.5 K/mm3 (0.1-0.6); MONO % 8.3 % (1.7-9.3); PLATELET COUNT 246 K/mm3 (130-400); RED BLOOD COUNT 5.24 M/mm3 (4.20-5.60); REDCELL DISTRIBUTION WIDTH-CV 13.1 % (11.5-14.5)
[2021-08-15 06:53] LABS: CALCIUM 8.4 mg/dL (8.4-10.2); CREATININE, serum 0.7 mg/dL (0.72-1.25); POTASSIUM 3.5 mmol/L (3.5-4.5)
--- NOTE | 2021-08-15 07:09 | NUR ---
REPORT RECEIVED FROM NITISH BELTRAN; PATIENT DID WELL OVERNIGHT, FLUIDS WERE STOPPED AND PATIENT CURRENTLY HAS NOTHING RUNNING. PATIENTS VITAL SIGNS REMAIN WITHIN NORMAL LIMITS AND PATIENT IS CURRENTLY SLEEPING.
--- NOTE | 2021-08-15 09:13 | NUR ---
SW met met with patient to complete intake. Patient states that he is staying at both his mothers house (Barb [phone]) and his sisters house. Patient states that he is independent with his ADL's and does not utilize any assistive devices to help with ambulation. Patient has no home oxygen needs. Patient reports that he is not seeing anyone for PCP care. He went to the [facility] once since his last admission. Patient reports to utilizing [facility] pharmacy for medications and states that he does have trouble affording his insulin. Patient is not and has no childrenno children. His established legal next of kin os his mother Barb.
--- NOTE | 2021-08-15 12:45 | NUR ---
SW contacted [facility] pharmacy in [place] to see when the patient refilled his insulin last. Pharmacist states that they have a RX written on 07/11/21 that was never filled. In May of 2021 patient was established with the [facility] program through the hospital. SONIA spoke with patients RN that it is compliance issue and not a cost issue as this patient was approved for the [facility] program.
--- NOTE | 2021-08-15 16:35 | NUR ---
sheep farm worker met with patient to discuss [facility] application. Educated the patient that the medication would be delivered to the hospital and he would have to pick it up here. Informed him with us going into the weekend it may not be here until Thursday. Strongly encouraged the patient to follow up with the [facility] as this is only a 30 day supply. Stressed the importance of following up with a physician at the clinic. Patient verbalized his knowledge that he can buy insulin at [facility]. SW addressed concerns that the patient verbalized to his RN that he cannot get ahold of his sister to pick him up. Patient states that "if you can get me a ride i can just sit outside of my sisters house until she answers the door". SONIA collaborated with with the above information. Due to pending testing and not having a secure discharge, would like to keep the patient overnight and dc first thing in the AM. Patient's RN notified.
--- NOTE | 2021-08-15 19:00 | NUR ---
RECEIVED REPORT FROM RUBY WOODALL.
--- NOTE | 2021-08-15 21:00 | NUR ---
PATIENT RESTING QUIETLY IN BED. ALERT AND ORIENTED; VITALS WITHIN NORMAL LIMITS. DENIES ANY PAIN OR DISCOMFORT. HS SNACK GIVEN PER PT REQUEST. NO FURTHER NEEDS NOTED.
[2021-08-16] VITALS (551 sets, daily range): BP systolic 118–127; BP diastolic 75–85; PULSE 79–88; TEMP 97.8–98.7; O2SAT 80–100
[2021-08-16 05:50] LABS: BASO % 0.4 % (0.0-2.0); EOS # 0.1 K/mm3 (0.0-0.7); EOS % 0.8 % (0.0-4.0); GRAN # 5.8 K/mm3 (1.4-6.5); GRAN % 64.7 % (42.2-75.2); HEMATOCRIT 42.2 % (42.0-52.0); HEMOGLOBIN 14.7 g/dl (13.5-18.0); LYMPH # 2.2 K/mm3 (1.2-3.4); LYMPH % 24.1 % (20.0-51.0); MEAN CELL VOLUME 87 fl (80.0-100.0); MEAN CORPUSCULAR HEMOGLOBIN 30 pg (27-31); MEAN CORPUSCULAR HGB CONC 35 g/dl (33.0-37.0); MONO # 0.9 K/mm3 (0.1-0.6); MONO % 9.6 % (1.7-9.3); PLATELET COUNT 215 K/mm3 (130-400); RED BLOOD COUNT 4.85 M/mm3 (4.20-5.60); REDCELL DISTRIBUTION WIDTH-CV 12.9 % (11.5-14.5)
[2021-08-16 06:06] LABS: CALCIUM 8.4 mg/dL (8.4-10.2); CREATININE, serum 0.78 mg/dL (0.72-1.25)
--- NOTE | 2021-08-16 07:00 | NUR ---
0700 BEDSIDE SHIFT REPORT GIVEN. PATIENT ALERT AND ORIENTED. PATIENT IS RESTING WITH NO COMPLAINTS AT THE TIME. PATIENT HAS TWO PIV LINES THAT ARE INT.
[2021-08-16] MEDS ORDERED: INSULIN AS100 UNIT/5 SQ ×2 (10:14→11:33)
--- NOTE | 2021-08-16 10:38 | NUR ---
SONIA faxed patients information and perscription to the [facility]. airbrush artist technical is unable to tell me when his insulin would be delivered. Informed the patient of this and that he will have to pick it up at the hospital either over the weekend or on Thursday. Strongly encouraged the patient to stay on top of this. Informed patient that the number we have listed for his mother is not in service. Patient states his mothers number is [phone]. Patient stateshis mother is at the hospital in [place] getting her veins worked on. His sister is going to pick her up and then will come to pick the patient up. States his sister Lidia does not have a phone and he has to call her through [employer] messenger.
--- NOTE | 2021-08-16 11:19 | NUR ---
Notified by RN that patient wanted to speak with me. SW met with patient at bedside. Patient verbalized that he's frustrated me me because i'm trying to " push him out the door" and that i was "harassing" him when i asked for his mothers number when " i'm not being ready to let go by the doctor". I verbalized my apologized to the patient that he was feeling that way, but that i was only asking because the number we had on file was not in service. Patient expressed frustration with his sister because she has his mothers van and no one can get ahold of her. Patient verbalized that he doesn't want her showing up and he not be ready to discharge. Confirmed with the patient's RN that the physician would like to get 1 more glucose before he was cleared for discharge. Rn confirmed that this would be checked within 30 minutes of this interaction. Patient states that he has talked with his mother this morning and she is now at home. Educated the patient that we will communicate with the patient about a time and that if he is unable to get ahold of his sister we will be able to provide a taxi voucher for him.
--- NOTE | 2021-08-16 12:54 | NUR ---
Notified by patient's RN that the patient is ready for discharge and is currently getting dressed. Patient states that he has not been able to get ahold of his sister. Informed the patient's RN that i will provide a taxi voucher. [employer] contacted and they are able to pick the patient up at 1320. Patients RN notified and provided with the taxi voucher and copy placed on the patients chart. Informed her that they will pick the patient up at the ER entrance.
--- NOTE | 2021-08-16 12:54 | NUR ---
Several visit attempts: Grand Scribe left card offering God's blessings and Spiritual Care throughout each day and Central Service Technician on Weekends.
--- NOTE | 2021-08-16 13:16 | NUR ---
PATIENT DISCHARGED TO HOME VIA CAB. PATIENT STABLE WITH NO COMPLAINTS AT TIME OF DISCHARGE. IVS REMOVED. PATIENT SENT HOME WITH SHOES, PHONE, CLOTHES, THAT HE CAME IN WITH.
== END 2021-08-16 13:16 | disposition home or self-care (01) | DRG 638 ==
LOC: COL.ER 19:40 → ICU 21:17
PROVIDERS: Emergency Medicine; Student in an Organized Health Care Education/Training Program; ADMIT Student in an Organized Health Care Education/Training Program
DX: E10.10 Type 1 diabetes mellitus with ketoacidosis without coma (principal); N17.9 Acute kidney failure, unspecified; D72.829 Elevated white blood cell count, unspecified; F17.210 Nicotine dependence, cigarettes, uncomplicated; F12.10 Cannabis abuse, uncomplicated; F15.10 Other stimulant abuse, uncomplicated; T38.3X6A Underdosing of insulin and oral hypoglycemic [antidiabetic] drugs, initial encounter; E87.5 Hyperkalemia; I10 Essential (primary) hypertension; Z91.138 Patient's unintentional underdosing of medication regimen for other reason
CPT/HCPCS: 99223-AI; 99232-AI; 99233-AI; 99239; J0360; J1644; J1815; J2270; J2405; J3480; J7030; J7042

== ENCOUNTER 2021-09-08 04:16 | Emergency (ER) | payer SELFPAY ==
[~2021-09-08] VITALS: Ht 175.3 cm; Wt 63.6 kg
[2021-09-08 04:25] VITALS: TEMP 98
[2021-09-08 05:26] LABS: COLLECTION METHOD CLEAN CATCH
[2021-09-08 05:32] LABS: MUCOUS Present (NOT PRESENT); PH 5 (5-8); SQUAMOUS EPITHELIAL 0-2 /hpf (0-10); URINE APPEARANCE Clear (CLEAR/HAZY); URINE BACTERIA None Seen /hpf (NONE SEEN); URINE BILIRUBIN Negative (NEGATIVE); URINE BLOOD Negative (NEGATIVE); URINE COLOR Yellow (YELLOW); URINE GLUCOSE 2+ (NEGATIVE); URINE KETONE Negative (NEGATIVE); URINE LEUKOCYTE ESTERASE Negative (NEGATIVE); URINE NITRATE Negative (NEGATIVE); URINE PROTEIN(semi-quant) Negative (NEGATIVE); URINE RBC None Seen /hpf (0-2); URINE UROBILINOGEN Negative (NEGATIVE)
[2021-09-08] MEDS ORDERED: LEVAQUIN 5500 MG/TA1 PO (05:51)
[2021-09-08 06:15] VITALS: BP 154/80; PULSE 70
== END 2021-09-08 06:15 | disposition home or self-care (01) ==
LOC: COL.ER 04:16
PROVIDERS: Emergency Medicine
DX: N50.812 Left testicular pain (principal); Z28.310 Unvaccinated for COVID-19

== ENCOUNTER 2021-10-15 14:25 | Inpatient (IN) | payer SELFPAY ==
[2021-10-15] VITALS (365 sets, daily range): BP systolic 133; BP diastolic 93; PULSE 98; TEMP 98.3; O2SAT 76–100
[~2021-10-15] VITALS: Ht 170.2 cm; Wt 71.5 kg
[~2021-10-15 14:25] MED LIST changes: +LEVAQUIN 5500 MG/TA1 PO
[2021-10-15 15:23] LABS: ALANINE AMINOTRANSFERASE 19 U/L (0-55); ALBUMIN 4.7 gm/dL (3.5-5.0); ALKALINE PHOSPHATASE 178 U/L (40-150); AST,SGOT 16 U/L (5-34); BILIRUBIN,TOTAL 0.6 mg/dL (0.2-1.2); BLOOD UREA NITROGEN 27 mg/dL (9-21); CALCIUM 9.6 mg/dL (8.4-10.2); CHLORIDE 92 mmol/L (98-107); CREATININE, serum 1.87 mg/dL (0.72-1.25); SODIUM 129 mmol/L (136-145); TOTAL PROTEIN 8.7 gm/dL (6.2-8.1)
[2021-10-15 15:28] LABS: CARBON DIOXIDE < 5 mmol/L (22-29); GLUCOSE 756 mg/dL (70-99); POTASSIUM 5.9 mmol/L (3.5-4.5)
[2021-10-15 16:16] LABS: HEMOGLOBIN 17.1 g/dl (13.5-18.0); MEAN CELL VOLUME 99 fl (80.0-100.0); MEAN CORPUSCULAR HEMOGLOBIN 31 pg (27-31); MEAN CORPUSCULAR HGB CONC 31 g/dl (33.0-37.0); PLATELET COUNT 408 K/mm3 (130-400); RED BLOOD COUNT 5.61 M/mm3 (4.20-5.60); REDCELL DISTRIBUTION WIDTH-CV 12.8 % (11.5-14.5)
[2021-10-15 16:19] LABS: HEMATOCRIT 55.5 % (42.0-52.0)
[2021-10-15 16:29] LABS: MAGNESIUM 2.4 mg/dL (1.6-2.6); PHOSPHOROUS 7.9 mg/dL (2.3-4.7)
[2021-10-15 16:44] LABS: BAND 18 % (0-10); METAMYELOCYTE 1 % (0-0); PLATELET ESTIMATE INCREASED (NORMAL)
[2021-10-15 16:45] LABS: LYMPHOCYTE 5 % (20.0-51.0); NEUTROPHILS 73 % (42.0-75.2)
[2021-10-15 17:11] LABS: COLLECTION METHOD CLEAN CATCH
[2021-10-15 17:22] LABS: SQUAMOUS EPITHELIAL None Seen /hpf (0-10); URINE BACTERIA None Seen /hpf (NONE SEEN); URINE RBC None Seen /hpf (0-2)
[2021-10-15 17:26] LABS: PH 5 (5-8); URINE APPEARANCE Clear (CLEAR/HAZY); URINE BLOOD Negative (NEGATIVE); URINE COLOR Yellow (YELLOW); URINE GLUCOSE 3+ (NEGATIVE); URINE KETONE 3+ (NEGATIVE); URINE NITRATE Negative (NEGATIVE); URINE PROTEIN(semi-quant) 1+ (NEGATIVE); URINE UROBILINOGEN Negative (NEGATIVE)
[2021-10-15 17:50] LABS: BLOOD UREA NITROGEN 24 mg/dL (9-21); CHLORIDE 113 mmol/L (98-107); CREATININE, serum 0.97 mg/dL (0.72-1.25); POTASSIUM 3.2 mmol/L (3.5-4.5); SODIUM 136 mmol/L (136-145)
[2021-10-15 17:52] LABS: CALCIUM 5.7 mg/dL (8.4-10.2); CARBON DIOXIDE < 5 mmol/L (22-29); GLUCOSE 493 mg/dL (70-99)
--- NOTE | 2021-10-15 19:22 | NUR ---
RECEIVED REPORT FROM RUBY FONTAINE; PATIENT ARRIVED ON THE UNIT AT APPROX 1745 ACCOMPANIED BY RUBY FONTAINE. PATIENT WAS STABLE UPON ARRIVAL WITH FLUIDS AND INSULIN RUNNING INTO HIS RIGHT UPPER ARM PICC AND LEFT PERIPHERAL LINE RESPECTIVELY. PATIENT WAS TACHYCARDIC AND HYPERTENSIVE UPON ARRIVAL, SHORT OF BREATH WITH PURSED-LIP BREATHING. PATIENT WAS ON ROOM AIR WITH O2 SATURATIONS OF 100%. PATIENT IS CURRENTLY RESTING IN BED WITH NO COMPLAINTS OF PAIN AT THIS TIME.
--- NOTE | 2021-10-15 20:00 | NUR ---
SHIFT REPORT RECEIVED. PT RESTING IN BED BETWEEN DISTURBANCES. PT A&O X4 PT MOVES INDEPENDENTLY. RT GREAT TOE WITH SMALL LESION ON TOP OF TOE. PT REPORTS LIVING SITUATION " BACK AND FORTH BETWEEN MY MOM AND MY SISTER'S PLACE"
[2021-10-15 20:12] LABS: CALCIUM 8.4 mg/dL (8.4-10.2); CREATININE, serum 1.44 mg/dL (0.72-1.25); POTASSIUM 4.7 mmol/L (3.5-4.5)
[2021-10-15 20:19] LABS: ARTERIAL BLD GAS O2 SATURATION 97.7 % (92-100); ARTERIAL BLOOD GAS BASE EXCESS -19.5 (-2-2); ARTERIAL BLOOD GAS HCO3 6.5 meq/L (22-26); ARTERIAL BLOOD GAS PO2 100.9 mmHg (80-100)
[2021-10-15 20:30] LABS: ARTERIAL BLOOD GAS PCO2 18.1 mmHg (35-45); ARTERIAL BLOOD GAS pH 7.17 (7.35-7.45)
[2021-10-15 22:17] LABS: CALCIUM 8.6 mg/dL (8.4-10.2); CREATININE, serum 1.29 mg/dL (0.72-1.25); POTASSIUM 4.4 mmol/L (3.5-4.5)
[2021-10-16] VITALS (1428 sets, daily range): BP systolic 116–135; BP diastolic 73–95; PULSE 89–102; TEMP 97.7–98.8; O2SAT 85–100
[2021-10-16 00:11] LABS: CALCIUM 8.5 mg/dL (8.4-10.2); CREATININE, serum 1.16 mg/dL (0.72-1.25); POTASSIUM 4.6 mmol/L (3.5-4.5)
[2021-10-16 04:33] LABS: HEMATOCRIT 43.2 % (42.0-52.0); MEAN CORPUSCULAR HGB CONC 35 g/dl (33.0-37.0); MEAN PLATELET VOLUME 8.4 fl (7.4-10.4); RED BLOOD COUNT 4.88 M/mm3 (4.20-5.60); REDCELL DISTRIBUTION WIDTH-CV 12.6 % (11.5-14.5)
[2021-10-16 04:39] LABS: MEAN CORPUSCULAR HEMOGLOBIN 31 pg (27-31)
[2021-10-16 04:40] LABS: MEAN CELL VOLUME 89 fl (80.0-100.0); PLATELET COUNT 262 K/mm3 (130-400)
[2021-10-16 04:49] LABS: CALCIUM 8.6 mg/dL (8.4-10.2); CREATININE, serum 0.97 mg/dL (0.72-1.25); POTASSIUM 3.9 mmol/L (3.5-4.5)
[2021-10-16 04:53] LABS: BAND 4 % (0-10); LYMPHOCYTE 6 % (20.0-51.0); NEUTROPHILS 84 % (42.0-75.2); PLATELET ESTIMATE NORMAL (NORMAL)
--- NOTE | 2021-10-16 06:18 | NUR ---
END OF SHIFT. PT SLEPT THROUGH NIGHT BETWEEN DISTURBANCES. PT CAP REFILL >3. PT HAD BM, LOOSE BROWN MODERATE SIZED STOOL X1
--- NOTE | 2021-10-16 07:36 | NUR ---
Report received from RUBY Schaefer. Pt laying in bed sleeping, arouses easily to name. Denies needs at this time. Call light within reach. IVF and gtts running w/o issues.
--- NOTE | 2021-10-16 08:00 | NUR ---
INSULIN GTT HELD X30 MIN
[2021-10-16 08:39] LABS: CALCIUM 8.7 mg/dL (8.4-10.2); CREATININE, serum 0.87 mg/dL (0.72-1.25); POTASSIUM 3.3 mmol/L (3.5-4.5)
--- NOTE | 2021-10-16 09:41 | NUR ---
Policy Advisor met with patient to discuss discharge planning. Patient has a history of multiple admissions for DKA. Per History and Physical, patient also reported methamphetamine and marijuana use. Patient states he doesn't "live" with his mom, Barb (ph#[phone]) but stays with her off and on. Patient advised if he's not staying with Barb, he also sometimes stays with his sister, Lidia. Both Lidia and Barb live in [place]. Patient denies following with a current primary care physician. SW asked patient if Case Management has set him up with either [facility] or the [facility] during previous stays and patient stated "you probably tried". Patient advised he has not followed up with either clinic. Patient advised he obtains his insulin from [facility] and ran out a couple days ago. SW asked about the [facility] as notes from his hospitalization in August indicated a referral was sent to [facility]. Patient stated he never picked up the insulin that was ordered. Patient advised he still has his glucometer but doesn't use it. Patient states poking himself a few times a day "sucks". Patient is normally independent with ADLS. Patient does not have Advance Directives in EMR and denies having DPOA-HC. Patient is not , has no children. Patient's legal next of kin is his mother, Barb. SW discussed mental health and drug/alcohol services with patient who denied interest in this. Patient plans to stay with either his mom or sister at time of discharge. Discharge Plan: Home with family
--- NOTE | 2021-10-16 11:00 | NUR ---
INSULIN GTT HELD X 30 MIN
[2021-10-16 12:50] LABS: CALCIUM 8.7 mg/dL (8.4-10.2); CREATININE, serum 0.81 mg/dL (0.72-1.25); POTASSIUM 3.3 mmol/L (3.5-4.5)
--- NOTE | 2021-10-16 14:30 | NUR ---
INSULIN GTT HELD X30 MIN
[2021-10-16 14:44] LABS: CALCIUM 8.7 mg/dL (8.4-10.2); CREATININE, serum 0.78 mg/dL (0.72-1.25); POTASSIUM 3.6 mmol/L (3.5-4.5)
--- NOTE | 2021-10-16 19:11 | NUR ---
Pt has had uneventful day. Pt denies pain. Pt placed on ADA diet and provided snacks. Pt arreguin minimal appetite but did eat some dinner. No further needs noted.
--- NOTE | 2021-10-16 20:07 | NUR ---
ASSESSMENT COMPLETE AND CHARTED. PATIENT ALERT AND ORIENTATED. REPORT INDIGESTION, DENIES NEEDS FOR INTERVENTION AT THIS TIME. DENIES NEEDS. CALL LIGHT IN REACH.
[2021-10-17] VITALS (1240 sets, daily range): BP systolic 135–173; BP diastolic 83–102; PULSE 75–95; TEMP 97.7–98.4; O2SAT 82–100
--- NOTE | 2021-10-17 04:46 | NUR ---
Patient reported feeling hypoglycemic this AM. BG 78, requested sandwich. Provided to patient. On recheck 183. Patient did not eat dinner last night.
[2021-10-17 04:48] LABS: BASO % 0.2 % (0.0-2.0); EOS % 0.2 % (0.0-4.0); GRAN # 10.3 K/mm3 (1.4-6.5); GRAN % 79.6 % (42.2-75.2); HEMATOCRIT 40.6 % (42.0-52.0); HEMOGLOBIN 14.2 g/dl (13.5-18.0); LYMPH # 1.3 K/mm3 (1.2-3.4); LYMPH % 10.3 % (20.0-51.0); MEAN CELL VOLUME 86 fl (80.0-100.0); MEAN CORPUSCULAR HEMOGLOBIN 30 pg (27-31); MEAN CORPUSCULAR HGB CONC 35 g/dl (33.0-37.0); MEAN PLATELET VOLUME 8.4 fl (7.4-10.4); MONO # 1.2 K/mm3 (0.1-0.6); MONO % 9.4 % (1.7-9.3); PLATELET COUNT 213 K/mm3 (130-400); RED BLOOD COUNT 4.72 M/mm3 (4.20-5.60); REDCELL DISTRIBUTION WIDTH-CV 12.8 % (11.5-14.5)
[2021-10-17 05:04] LABS: CALCIUM 8.8 mg/dL (8.4-10.2); CREATININE, serum 0.72 mg/dL (0.72-1.25); POTASSIUM 3.6 mmol/L (3.5-4.5)
--- NOTE | 2021-10-17 05:58 | NUR ---
Patient had uneventful night. Resting in bed this Am. Call light in reach.
--- NOTE | 2021-10-17 07:02 | NUR ---
REPORT GIVEN TO BLANCHE BELTRAN
--- NOTE | 2021-10-17 08:44 | NUR ---
Pt laying in bed this morning, eating breakfast, minimal appetite. Denies any pain at this time. ANGEL PICC in place w/ good blood return, flushes w/o issues. No IVF or gtts at this time. Pt voiding well in urinal. Call light within reach.
--- NOTE | 2021-10-17 11:02 | NUR ---
Several visit attempts; Telephone Directory Distributor Driver left card offering God's blessings and information regarding the availability of Spiritual Care at our hospital.
--- NOTE | 2021-10-17 11:29 | NUR ---
Director Of Institutional Sales contacted Nigel Financial Counselor who advised she has attempted to assist patient with Medicaid application in the past, however patient is still self pay. SW attended clinical rounds with the team and patient to move up to the med/surg floor. Possible DC tomorrow.
--- NOTE | 2021-10-17 21:21 | NUR ---
BEDSIDE SHIFT REPORT RECEIVED FROM RUBY MANCIA. PT CURRENTLY RESTING IN BED. NO C/O PAIN OR DISCOMFORT. VSS. SALINE LOCKED. NO ACUTE CHANGES NOTED AT THIS TIME
[2021-10-18] VITALS (515 sets, daily range): BP systolic 129–159; BP diastolic 82–105; PULSE 67–89; TEMP 97.7–98.6; O2SAT 79–100
[2021-10-18 04:08] LABS: BASO % 0.3 % (0.0-2.0); EOS % 0.4 % (0.0-4.0); GRAN # 4.9 K/mm3 (1.4-6.5); GRAN % 65.8 % (42.2-75.2); HEMATOCRIT 40.1 % (42.0-52.0); HEMOGLOBIN 14.2 g/dl (13.5-18.0); LYMPH # 1.6 K/mm3 (1.2-3.4); LYMPH % 21.5 % (20.0-51.0); MEAN CELL VOLUME 86 fl (80.0-100.0); MEAN CORPUSCULAR HEMOGLOBIN 31 pg (27-31); MEAN CORPUSCULAR HGB CONC 35 g/dl (33.0-37.0); MEAN PLATELET VOLUME 8.5 fl (7.4-10.4); MONO # 0.9 K/mm3 (0.1-0.6); MONO % 11.5 % (1.7-9.3); PLATELET COUNT 185 K/mm3 (130-400); RED BLOOD COUNT 4.66 M/mm3 (4.20-5.60); REDCELL DISTRIBUTION WIDTH-CV 12.5 % (11.5-14.5)
[2021-10-18 05:07] LABS: CALCIUM 8.8 mg/dL (8.4-10.2); CREATININE, serum 0.77 mg/dL (0.72-1.25); POTASSIUM 4.2 mmol/L (3.5-4.5)
--- NOTE | 2021-10-18 13:43 | NUR ---
VSS, PT A&O X4, PT ABLE TO MAKE NEEDS KNOWN, PT UP IN CHAIR, STEADY GAIT, RA, FALL PRECAUTIONS IN PLACE, CALL LIGHT IN REACH
--- NOTE | 2021-10-18 20:30 | NUR ---
Initial shift assessment done- denies any pain, in good spirits, alert/oriented x4, pleasant, did eat 3/4 of supper tonight, watching some TV, PICC to ANGEL ,, no requests.
--- NOTE | 2021-10-19 03:00 | NUR ---
Called to pts room, states he feels like his blood sugar is low- checked at this time, Blood sugar 134- requesting just 1/2 a sandwich,,will give at this time.
[2021-10-19 04:13] VITALS: BP 122/85; PULSE 79; TEMP 98
[2021-10-19 07:06] VITALS: BP 138/93; PULSE 89; TEMP 98
--- NOTE | 2021-10-19 07:42 | NUR ---
Pt. sitting up in bed. Pt. is a&OX3, assessment complete. PICC to rt. upper arm patent. Pt. denies pain or other needs, call light within reach.
[2021-10-19] MEDS ORDERED: PROTONIX 40MG T40 MG PO ×3 (11:08→14:21)
[2021-10-19] MEDS ORDERED: INSULIN AS100 UNIT/5 SQ ×3 (11:08→14:26)
[2021-10-19 11:30] VITALS: BP 140/93; PULSE 76; TEMP 97.8
[2021-10-19 11:54] LABS: CALCIUM 9.3 mg/dL (8.4-10.2); CREATININE, serum 0.69 mg/dL (0.72-1.25); POTASSIUM 3.3 mmol/L (3.5-4.5)
[2021-10-19] MEDS ORDERED: GLUTOSE 1515 GM PO ×2 (13:10→14:22)
[2021-10-19] MEDS ORDERED: LANCETS MC ×2 (13:10→14:21)
[2021-10-19] MEDS ORDERED: GLUCOSE TEST ST1 DEV MC ×2 (13:10→14:21)
[2021-10-19] MEDS ORDERED: FREESTYLE PREC1 EAC5 MC ×2 (13:10→14:21)
[2021-10-19] MEDS ORDERED: BD ALCOHOL1 SWA MC ×2 (13:10→14:21)
[2021-10-19] MEDS ORDERED: GLUCAGON EMERGEN1 M1 SQ ×2 (13:10→14:22)
[2021-10-19] MEDS ORDERED: INSULIN PEN NE1 EAC1 MC (14:21)
--- NOTE | 2021-10-19 14:24 | NUR ---
Orders to Discharge pt. in. PICC discontinued from Rt. upper arm at this time. See PICC removal documentation.
--- NOTE | 2021-10-19 14:30 | NUR ---
Discharge packet reviewed with the pt. This nurse stressed the importance of the pt. 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 Pt. voices understanding. Pt. given health summary, pt. discharge instructions, med rec., and education. Pt. denies questions. Pt. attempting to get a hold of mother for ride.
[2021-10-19] MEDS ORDERED: NOVOLIN 70100 UNIT/2 SQ (14:31)
--- NOTE | 2021-10-19 15:00 | NUR ---
Pt. unable to get a hold of mother for ride. Microwave Technician informed. Taxi voucher received.
--- NOTE | 2021-10-19 16:00 | NUR ---
Evy has arrived. Pt. escorted out by SYSTEMS PROGRAMMER.
--- NOTE | 2021-10-19 17:01 | NUR ---
SONIA obtained voice message from [facility] staff. Staff stated that the medication that was faxed over and electronically sent did not match. SONIA called Jaqueline back, but facility was closed. SONIA informed oncoming SONIA to please follow up for the next to clarify medications and assist completing new med voucher from physician, and providing accurate voucher to [facility].
--- NOTE | 2021-10-20 12:43 | NUR ---
Side Gluer attempted contact to [facility] to clarify patient medications prescribed for medication voucher sent yesterday. Voicemail left.
--- NOTE | 2021-10-20 13:31 | NUR ---
Spider Assembler received telephone contact from Cristi at [facility] pharmacy. Cristi has spoken to patient who has enough insulin through Thursday. There is a question on the voucher sent home with him yesterday regarding insulin supply and cost;Cristi requests follow up to case management/neonatal social worker or team to further discuss best plan for patient medications for cost-effectiveness and to meet patient needs. Cristi to update patient at home. Spider Assembler to request follow up from case management M-F team/supervisor soldering.
== END 2021-10-19 16:00 | disposition home or self-care (01) | DRG 637 ==
LOC: COL.ER 14:25 → ICU 15:55 → MEDICAL 10-18 14:18
PROVIDERS: Family Medicine; Internal Medicine; Physician Assistant; ADMIT Student in an Organized Health Care Education/Training Program
PROC: 02HV33Z Insertion of Infusion Device into Superior Vena Cava, Percutaneous Approach (ICD-10-PCS; principal; 2021-10-15)
DX: E10.10 Type 1 diabetes mellitus with ketoacidosis without coma (principal); G93.41 Metabolic encephalopathy; N17.9 Acute kidney failure, unspecified; Z66 Do not resuscitate; F17.210 Nicotine dependence, cigarettes, uncomplicated; F19.10 Other psychoactive substance abuse, uncomplicated; D72.829 Elevated white blood cell count, unspecified; E87.5 Hyperkalemia; B00.1 Herpesviral vesicular dermatitis; I10 Essential (primary) hypertension; R13.10 Dysphagia, unspecified; Z79.4 Long term (current) use of insulin; Z91.14 Patient's other noncompliance with medication regimen
CPT/HCPCS: C1751; C1892; J0696; J1644; J1815; J3480; J7030

== ENCOUNTER → 2022-07-17 | Outpatient (CLI) | payer OTHER ==
[~2022-07-17] MED LIST changes: +BD ALCOHOL1 SWA MC; +CARAFATE 1GM1 G PO; +GLUCAGON EMERGEN1 M1 SQ; +GLUTOSE 1515 GM PO; +INSULIN PEN NE1 EAC1 MC; +NOVOLIN 70100 UNIT/2 SQ
== END ==
LOC: COL.RAD 09:41
DX: Z02.71 Encounter for disability determination (principal); Z87.81 Personal history of (healed) traumatic fracture

== ENCOUNTER 2023-12-10 10:29 | Inpatient (IN) | payer MEDICAID ==
[2023-12-10] VITALS (303 sets, daily range): BP systolic 102–161; BP diastolic 67–116; PULSE 76–104; TEMP 98; O2SAT 89–100
[~2023-12-10] VITALS: Ht 175.3 cm; Wt 60.9 kg
[~2023-12-10 10:29] MED LIST changes: +B-D SAFETY GLID1 DE1 SQ; +BACTRIM DS 8001 TAB PO; +NOVOLOGMIX70/30 SQ
[2023-12-10] MEDS ORDERED: Dextrose 50% Water 25 GM/50 ML SYRINGE IV ONE ×2 (11:00→13:15)
[2023-12-10] MEDS ORDERED: D10W 1,000 ML IV ONE (11:15)
[2023-12-10 11:53] LABS: ALANINE AMINOTRANSFERASE 29 U/L (0-55); ALKALINE PHOSPHATASE 178 U/L (40-150); ANION GAP 15 mmol/L (7-16); AST,SGOT 18 U/L (5-34); BILIRUBIN,TOTAL 0.3 mg/dL (0.2-1.2); BLOOD UREA NITROGEN 25 mg/dL (9-21); CALCIUM 10.3 mg/dL (8.4-10.2); CHLORIDE 100 mEq/L (98-107); CREATININE, serum 0.87 mg/dL (0.72-1.25); GLUCOSE 148 mg/dL (70-99); POTASSIUM 3.4 mEq/L (3.5-4.5); SODIUM 136 mEq/L (136-145); TOTAL PROTEIN 7.4 g/dl (6.2-8.1)
[2023-12-10 11:57] LABS: ALCOHOL(ethanol),MEDICAL < 10 mg/dL (0-10); SALICYLATE < 5.0 mg/dL (15.0-30.0)
[2023-12-10 14:06] LABS: COLLECTION METHOD CLEAN CATCH
[2023-12-10] MEDS ORDERED: Acetaminophen 500 MG TAB PO PRN (14:15)
[2023-12-10] MEDS ORDERED: Glucagon 1 MG VIAL IM PRN (14:15)
[2023-12-10] MEDS ORDERED: D10W 1,000 ML IV SCH (14:15)
[2023-12-10] MEDS ORDERED: Ondansetron 4 MG/2 ML VIAL IV PRN (14:15)
[2023-12-10] MEDS ORDERED: Dextrose (Glucose) 15 GM (4 x 3.75 GM) Chewable TABLET PACK PO PRN (14:15)
[2023-12-10] MEDS ORDERED: Dextrose 50% Water 25 GM/50 ML SYRINGE IV PRN (14:15)
[2023-12-10 14:27] LABS: URINE APPEARANCE CLEAR (CLEAR/HAZY); URINE BLOOD NEGATIVE (NEGATIVE); URINE COLOR YELLOW (YELLOW); URINE GLUCOSE 3+ (NEGATIVE); URINE KETONE NEGATIVE (NEGATIVE); URINE NITRATE NEGATIVE (NEGATIVE); URINE PROTEIN(semi-quant) 1+ (NEGATIVE); URINE UROBILINOGEN 0.2 E.U/dL (0.2-1.0)
[2023-12-10] MEDS ORDERED: hydrALAZINE 20 MG/ML 1 ML VIAL IV PRN (14:30)
[2023-12-10 14:35] LABS: TRICYCLIC ANTIDEPRESS URINE POSITIVE (NEGATIVE)
--- NOTE | 2023-12-10 19:00 | NUR ---
PT ATTEMPTED OD ON INSULIN. HAS A TELE SITTER. PT IS PLEASANT AND COOPERATIVE.
--- NOTE | 2023-12-10 20:00 | NUR ---
PT IS IN ICU. ICU CORDS SHORTENED OR REMOVED ABLE.
--- NOTE | 2023-12-10 20:30 | NUR ---
PT REFUSES SCD'S. EDUCATED ON THE NEED FOR SCD'S. PT'S OSTOMY BASE & BAG CHANGED DUE TO LEAK. PT NEEDS OSTOMY EMPTIED EVERY 1-2 HOURS. PT HAS A CLEAR SUTURE NOTED IN HEALED INCISION.
[2023-12-10] MEDS ORDERED: Famotidine 20 MG TAB PO SCH (21:00)
[2023-12-10] MEDS ORDERED: BUSPAR5 MG PO (21:02)
[2023-12-10] MEDS ORDERED: CORDARONE200 MG/TAB PO (21:03)
[2023-12-10] MEDS ORDERED: VOLTAREN GEL 1%1 TU TP (21:05)
[2023-12-10] MEDS ORDERED: LOMOTIL 0.025 M1 TAB PO (21:06)
[2023-12-10] MEDS ORDERED: NEURONTIN300 MG/CAP PO (21:19)
[2023-12-10] MEDS ORDERED: GAS RELIEF 8080 MG PO (21:23)
[2023-12-10] MEDS ORDERED: ATARAX 25MG25 MG/TAB PO (21:24)
[2023-12-10] MEDS ORDERED: INSULIN LI100 UNIT/2 SQ (21:28)
[2023-12-10] MEDS ORDERED: LANTUS SOLOS100 U/ML SQ (21:31)
[2023-12-10] MEDS ORDERED: IMODIUM 2MG CAPS2 MG PO (21:32)
[2023-12-10] MEDS ORDERED: NICODERM C21 MG/PATC TD (21:33)
[2023-12-10] MEDS ORDERED: REMERON 15M15 MG/TA1 PO (21:33)
[2023-12-10] MEDS ORDERED: ROBAXIN 75750 MG/TAB PO (21:33)
[2023-12-10] MEDS ORDERED: NICORETTE4 MG PO (21:35)
[2023-12-10] MEDS ORDERED: PROTONIX 40MG T40 MG PO (21:36)
[2023-12-10] MEDS ORDERED: PREDNISONE20 MG PO (21:37)
[2023-12-10] MEDS ORDERED: SEROQUEL 2525 MG/TAB PO (21:39)
[2023-12-10] MEDS ORDERED: REQUIP 0.5MG0.5 MG PO (21:40)
[2023-12-10] MEDS ORDERED: SEPTRA DS 8001 TAB PO (21:43)
[2023-12-10] MEDS ORDERED: XIFAXAN550 MG PO (21:44)
[2023-12-10] MEDS ORDERED: METAMUCIL3.4 GM/DOS PO (21:47)
--- NOTE | 2023-12-10 21:55 | NUR ---
PT HAS ON PAPER MAROON BOTTOMS. REFUSED THE TOP. ICU CORDS SHORTENED. UNALBE TO REMOVER MONITORS OR COMPUTER. TELE SITTER IN USE.
[2023-12-10] MEDS ORDERED: NS 1,000 ML IV SCH (23:15)
[2023-12-11] VITALS (691 sets, daily range): BP systolic 96–125; BP diastolic 68–93; PULSE 80–94; TEMP 97.5–98.4; O2SAT 85–100
[2023-12-11] MEDS ORDERED: Insulin Lispro (HumaLOG) SQ SCH ×3 (00:09→12:00)
[2023-12-11] MEDS ORDERED: busPIRone 5 MG TAB PO SCH (00:11)
[2023-12-11] MEDS ORDERED: Loperamide 2 MG CAP PO SCH (00:12)
[2023-12-11] MEDS ORDERED: Gabapentin 400 MG CAP PO SCH (00:13)
[2023-12-11] MEDS ORDERED: hydrOXYzine HCl 25 MG TAB PO PRN (00:15)
[2023-12-11] MEDS ORDERED: Mirtazapine 15 MG TAB PO SCH (00:19)
[2023-12-11] MEDS ORDERED: Methocarbamol 750 MG TAB PO SCH (00:20)
[2023-12-11] MEDS ORDERED: QUEtiapine 25 MG TAB PO SCH (00:22)
[2023-12-11] MEDS ORDERED: rOPINIRole 0.5 MG TAB PO SCH (00:24)
[2023-12-11] MEDS ORDERED: Diphenoxylate/Atropine 2.5-0.025 MG TAB PO SCH (00:26)
[2023-12-11] MEDS ORDERED: HUMALOG PEN100 U/ML SQ ×2 (00:32→00:34)
[2023-12-11] MEDS ORDERED: Insulin Glargine-ygfn (Lantus) SQ SCH (00:35)
--- NOTE | 2023-12-11 00:37 | NUR ---
PT HAS A OSTOMY. OSTOMY CARE PROVIDED. PT HAS A TELE SITTER. PT IS CALM AND COOPERATIVE AT THIS TIME. PT IS HOURLY ACCU CHECKS.
[2023-12-11] MEDS ORDERED: rifAXIMin 550 MG TAB PO SCH (00:40)
--- NOTE | 2023-12-11 03:21 | NUR ---
REMAINS COOPERATIVE ON ROUNDS. PT SLEEPING AT THIS TIME.
[2023-12-11 05:44] LABS: BASO % 0.2 % (0.0-2.0); EOS # 0.1 K/mm3 (0.0-0.7); EOS % 0.3 % (0.0-4.0); GRAN # 14.1 K/mm3 (1.4-6.5); HEMATOCRIT 46.1 % (42.0-52.0); HEMOGLOBIN 15.2 g/dl (13.5-18.0); LYMPH # 2.9 K/mm3 (1.2-3.4); MEAN CELL VOLUME 82 fl (80.0-100.0); MEAN CORPUSCULAR HEMOGLOBIN 27 pg (27-31); MEAN CORPUSCULAR HGB CONC 33 g/dl (33.0-37.0); MEAN PLATELET VOLUME 8.8 fl (7.4-10.4); MONO # 1.1 K/mm3 (0.1-0.6); MONO % 6.1 % (1.7-9.3); PLATELET COUNT 317 K/mm3 (130-400); RED BLOOD COUNT 5.63 M/mm3 (4.20-5.60); REDCELL DISTRIBUTION WIDTH-CV 22.8 % (11.5-14.5)
--- NOTE | 2023-12-11 05:49 | NUR ---
REMAINS STABLE ON ROUNDS. PT IS SLEEPING. PT IS CALM AND COOPERATIVE. RESPIRATIONS EVEN AND UNLABORED. NO SIGN OF DISTRESS AT THIS TIME. CONTINUE PLAN OF CARE.
[2023-12-11 06:06] LABS: CALCIUM 9.8 mg/dL (8.4-10.2); CREATININE, serum 0.98 mg/dL (0.72-1.25); MAGNESIUM 1.6 mg/dL (1.6-2.6); POTASSIUM 4.6 mEq/L (3.5-4.5)
--- NOTE | 2023-12-11 07:00 | NUR ---
0700 REPORT RECEIVED FROM JOSE C RN. PT RESTING IN BED, VSS. NS INFUSING TO PERIPHERAL R AC IV. PT IS ALERT AND ORIENTED, DENIES ANY SUICIDAL IDEATION AT THIS TIME. STATES HE IS AGREEABLE TO IN PT PSYCH TREATMENT. 0900PT ASKED NURSE TO HAVE BLOOD SUGAR CHECKED, STATING "I DON'T FEEL RIGHT". BLOOD SUGAR 50. DEXTROSE 50% 12.5G GIVEN. 0935BLOOD SUGAR 147 AT THIS TIME, PT SITTING UP IN BED TO EAT BREAKFAST.
--- NOTE | 2023-12-11 07:31 | NUR ---
REMAINS STABLE ON ROUNDS. RESPIRATIONS EVEN AND UNLABORED. FREQUENT OSTOMY CARE. NO SIGN OF DISTRESS AT THIS TIME.
[2023-12-11] MEDS ORDERED: predniSONE 20 MG TAB PO SCH (08:00)
[2023-12-11] MEDS ORDERED: Psyllium Powder 5.8 G (3.4 G Psyllium) PACKET PO SCH (09:00)
[2023-12-11] MEDS ORDERED: Nicotine 21 MG DAILY PATCH TD SCH (09:00)
[2023-12-11] MEDS ORDERED: Sulfamethoxazole/Trimethoprim 800-160 MG TAB PO SCH (09:00)
[2023-12-11] MEDS ORDERED: Amiodarone 200 MG TAB PO SCH (09:00)
[2023-12-11] MEDS ORDERED: Magnesium Sulfate 4 GM/50 ML IV SOLN IV SCH (10:30)
--- NOTE | 2023-12-11 12:42 | NUR ---
SONIA and SONIA Lockwood met with patient to complete initial assessment for discharge planning. Patient stated "I"m homeless" when asked where he lives. He reports being homeless for over 10 years. Patient states that he stays with his mom Barb Hidalgo ([phone]) sometimes. Patient denies having a PCP and states he has not been to [facility] in a long time. Patient uses [facility] and states "I don't have any money". Patient denies using any DME. 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 He states he [facility]. Patient admits to using methamphatamines and marijuana daily but states he hasn't used in the past couple of days. He denies alcohol use. Patient stated reason for hospitalization "I tried to off myself". He states he is willing to go to [facility] treatment. He was explained the process of being medically cleared and that [facility] would screen him and secure placement. Patient voiced needing to be close to [facility] for follow up on his ostomy surgery. SONIA encouraged patient to inform [facility] of this request. Discharge plan: [facility]
--- NOTE | 2023-12-11 12:55 | NUR ---
SONIA called and spoke with patient's mother Barb Hidalgo ([phone]). She verified information provided by patient. She shared that she lives in . housing and patient isn't supposed to be staying with her. Barb states that patient will have to go somewhere else to live when he discharges from hospital. Barb also shared that patient has been in [facility] for several months. Mother was informed that patient is being screened by [facility] for inpt psych placment to which patient is agreeable. All questions were answered.
--- NOTE | 2023-12-11 18:33 | NUR ---
Patient resting in bed, watching television. He is asking for coffee. Explained it is too late for that and wont be able to sleep. Calm and cooperative. States he does not want to hang up himself. He mentions next time he tries to commit suicide he will use narcotics. States he wont do ti now since he is in the hospital but perhapas later. Pt has the telesitter in room. Right now watching TV and calm.
--- NOTE | 2023-12-11 21:10 | NUR ---
REC'D PHONE CALL FROM BRI FAULKNER AT [facility], HE REQUESTED FAX # TO SEND FORMS FOR PT TO FILL OUT FOR [facility], REC'D PAPERWORK AND PLACED ON PATIENT'S CHART
[2023-12-12] VITALS (15 sets, daily range): BP systolic 90–125; BP diastolic 66–84; PULSE 74–94; TEMP 97.5–98.1
--- NOTE | 2023-12-12 04:43 | NUR ---
pt signed consent for [facility], forms faxed to [phone]
--- NOTE | 2023-12-12 05:00 | NUR ---
ASSESSMENT COMPLETE FOR ASSOCIATE RELATIONS SPECIALIST. pt DENIED GENERAL PAIN, CHEST PAIN, PALPITATIONS, SOB, N,V,D OR DIZZINESS. pt ALSO DENIED PLANNING TO COMMIT SUICIDE AT THIS TIME. pt MONITORED THOUGHOUT SHIFT BY MYSELF AND REMOTE TELE SITTER. pt DID HAVE SOME ELEVATED BLOOD SUGARS. HOSPITALIST (MARYSE SALGADO) CALLED. ELEVATED BLOOD SUGAR TREATED. WILL CONTINUE TO MONITOR. CALL LIGHT WITHIN REACH.
[2023-12-12 17:20] LABS: CALCIUM 9.3 mg/dL (8.4-10.2); CREATININE, serum 0.98 mg/dL (0.72-1.25)
[2023-12-12 17:31] LABS: POTASSIUM 5.8 mEq/L (3.5-4.5)
--- NOTE | 2023-12-12 17:33 | NUR ---
INFORMED OF PATIENT CRITICAL POTASSIUM
[2023-12-12] MEDS ORDERED: Sodium Zirconium Cyclosilicate for Oral Susp 10 GM PACKET PO ONE (17:45)
--- NOTE | 2023-12-12 17:55 | NUR ---
NICHOLE FROM THE CRISIS UNIT CALLED FOR QUESTIONS REGARDING PATIENT. PER NICHOLE AN INQUIRY WAS MADE FROM A FACILITY [facility] IF POISON CONTROL WAS CONTACTED ON ADMIT. THIS RN EXPLAINED THAT IT HAD NOT BEEN, HE IS HERE FOR HYPOGLYCEMIA D/T ATTEMPTED OVERDOSE WITH INSULIN. PER NICHOLE SHE WILL REITERATE THIS TO THE POSSIBLE FACILITY. NURSING CONSULTANT AWARE.
--- NOTE | 2023-12-12 18:15 | NUR ---
PATIENT ASLEEP, RESTING IN BED. PATEITNS CALL LIGHT AND URINAL WITHIN REACH. FALL PRECAUTIOSN IN PLACE, BED ALARM ON, TELESITTER IN ROOM.
[2023-12-12] MEDS ORDERED: Insulin Glargine-ygfn (Lantus) SQ SCH (21:00)
[2023-12-13] VITALS (9 sets, daily range): BP systolic 105–122; BP diastolic 64–86; PULSE 75–102; TEMP 97.4–98.2
[2023-12-13 06:31] LABS: BASO # 0.1 K/mm3 (0.0-0.2); BASO % 0.4 % (0.0-2.0); EOS # 0.1 K/mm3 (0.0-0.7); EOS % 1.1 % (0.0-4.0); GRAN # 8.1 K/mm3 (1.4-6.5); GRAN % 65.1 % (42.2-75.2); HEMATOCRIT 43.7 % (42.0-52.0); HEMOGLOBIN 14.4 g/dl (13.5-18.0); LYMPH # 3.4 K/mm3 (1.2-3.4); LYMPH % 27.6 % (20.0-51.0); MEAN CELL VOLUME 82 fl (80.0-100.0); MEAN CORPUSCULAR HEMOGLOBIN 27 pg (27-31); MEAN CORPUSCULAR HGB CONC 33 g/dl (33.0-37.0); MEAN PLATELET VOLUME 8.8 fl (7.4-10.4); MONO # 0.7 K/mm3 (0.1-0.6); MONO % 5.5 % (1.7-9.3); PLATELET COUNT 314 K/mm3 (130-400); RED BLOOD COUNT 5.33 M/mm3 (4.20-5.60); REDCELL DISTRIBUTION WIDTH-CV 21.3 % (11.5-14.5)
--- NOTE | 2023-12-13 08:11 | NUR ---
THE PATIENT HAS A TELE SITTER AND EVERY 15 MINUTE SI/BEHAVIOR MONITORING. DUE TO STAFFING IT WAS NOT POSSIBLE TO MAINTAIN THE EVERY 15 MINUTE ORDERED MONITORING. RUBY WILEYOLD TESTAMENT PROFESSOR NOTIFIED OF THIS 12/12/23 AT 19:47. THE PATIENT WAS ORIENTED AND CALM THROUGHOUT THE NIGHT. NO DISTRESS OR DISRUPTIONS NOTED. NO CALLS FROM THE TELE SITTER FOR BEHAVIOR ISSUES. VITAL SIGNS STABLE.
--- NOTE | 2023-12-13 08:15 | NUR ---
PATIENTS MOTHER CALLED AND WILL BE ABLE TO BRING IN PATEINT SUPPLIES FOR HIS COLOSTOMY CARE. AIRWORTHINESS INSPECTOR INFORMED AND WILL CALL [facility]
--- NOTE | 2023-12-13 08:24 | NUR ---
Call placed to [facility] regarding the report that this Staffing Associate recieved that the barrier holding patient from being admitted to [facility] was lack of supplies. Patients nurse called his mother. Mother will have supplies here today. PM will reach out to [facility] to see if they will reconsider his admission to this facility
--- NOTE | 2023-12-13 10:00 | NUR ---
MD AWARE OF RN CONCERN REGARDING PATIENT COLOSTOMY OUTPUT. FOOD AND DRINK DOES NOT SEEM TO BE DIGESTED. VISABLY ABLE TO SEE WHAT PATINET CONSUMED IN HIS COLOSTOMY, FOR EXAMPLE, JELLO. PATIENT STATES HIS OUT PUT HAS BEEN THIS WAY SINCE IT WAS PLACED AND THAT [facility] WAS UNABLE TO FIGURE OUT WHY.
[2023-12-13 11:23] LABS: CALCIUM 9.8 mg/dL (8.4-10.2); CREATININE, serum 0.97 mg/dL (0.72-1.25); POTASSIUM 5.5 mEq/L (3.5-4.5)
[2023-12-13] MEDS ORDERED: Sodium Zirconium Cyclosilicate for Oral Susp 10 GM PACKET PO ONE (12:30)
[2023-12-13] MEDS ORDERED: Insulin Lispro (HumaLOG) SQ SCH (12:31)
--- NOTE | 2023-12-13 16:00 | NUR ---
PATIENT HAS BEEN BEEN COOPERATIVE AND APPRECIATEIVE OF STAFF. PATIENT VERBALIZES FUSTRATION WITH COLOSTOMY BAG. PATIETN OFTEN STATES " THIS IS JUST DISGUSTING, THIS IS WHY I WANT IT TO END." RN PROVIDED EMOTIONAL SUPPORT. RN REPLACED COLOSTOMY BAG. HE DENIES ANY FURTHER NEEDS AT THIS TIME.
--- NOTE | 2023-12-13 17:00 | NUR ---
PER PATIENT HE IS ABLE TO TAKE CARE OF HIS COLOSTOMY AND MANAGE IT WITHOUT ASSISTANCE.
[2023-12-13 21:42] LABS: CALCIUM 9.7 mg/dL (8.4-10.2); CREATININE, serum 1.12 mg/dL (0.72-1.25); POTASSIUM 4.6 mEq/L (3.5-4.5)
--- NOTE | 2023-12-13 22:19 | NUR ---
Patient assessed around 2054. Alert and oriented, and able to make needs known. Denies having pain and discomfort. Peripheral INT to right wrist. Denies SOB and dyspnea. LS CTA. HRR. BSAx4. Has ostomy with liquid stool. No edema. Patient has telesitter in room for suicide precautions. PCT assigned for 15 minute checks for safety. In bed with call light within reach.
[2023-12-14] VITALS (11 sets, daily range): BP systolic 104–131; BP diastolic 73–92; PULSE 75–101; TEMP 97.7–98.6
--- NOTE | 2023-12-14 05:52 | NUR ---
Patient has been on 15 minute checks. Has had telesitter in room, and has had a PCT assigned to complete 15 minute checks this shift. Has been in a pleasant mood. Continues to have liquid stool from ostomy. Voice no questions, needs, or concerns at this time. In bed with call light within reach.
--- NOTE | 2023-12-14 06:55 | NUR ---
awake resting in bed, lab in to draw blood, bedside shift report received from RUBY Langston, telesitter in place
--- NOTE | 2023-12-14 08:40 | NUR ---
resting in bed and has had breakfast, c/o not having enough to eat, will talk with dietitian, full assessment completed, see interventions for further info, colostomy intact and stoma is red, has loose brownish yellow stool in colostomy bag, otherwise denies needs and pain
[2023-12-14 08:41] LABS: BASO % 0.3 % (0.0-2.0); EOS # 0.2 K/mm3 (0.0-0.7); EOS % 1.4 % (0.0-4.0); GRAN % 58.6 % (42.2-75.2); HEMATOCRIT 46.4 % (42.0-52.0); HEMOGLOBIN 15.9 g/dl (13.5-18.0); LYMPH % 33.6 % (20.0-51.0); MEAN CELL VOLUME 81 fl (80.0-100.0); MEAN CORPUSCULAR HEMOGLOBIN 28 pg (27-31); MEAN CORPUSCULAR HGB CONC 34 g/dl (33.0-37.0); MEAN PLATELET VOLUME 8.2 fl (7.4-10.4); MONO # 0.7 K/mm3 (0.1-0.6); MONO % 5.8 % (1.7-9.3); PLATELET COUNT 324 K/mm3 (130-400); RED BLOOD COUNT 5.76 M/mm3 (4.20-5.60); REDCELL DISTRIBUTION WIDTH-CV 21.2 % (11.5-14.5)
[2023-12-14 08:56] LABS: CALCIUM 9.2 mg/dL (8.4-10.2); CREATININE, serum 0.91 mg/dL (0.72-1.25); MAGNESIUM 1.7 mg/dL (1.6-2.6); POTASSIUM 4.3 mEq/L (3.5-4.5)
--- NOTE | 2023-12-14 09:00 | NUR ---
Dr Jones and care team in to see patient
--- NOTE | 2023-12-14 09:37 | NUR ---
dietitian in to talk with patient
--- NOTE | 2023-12-14 09:45 | NUR ---
[employer]ER states she emptied his colostomy and it is more solid now and had to assist with pushing out the stool
--- NOTE | 2023-12-14 10:44 | NUR ---
in bed and appears to be sleeping, eyes closed, resp quiet and easy
--- NOTE | 2023-12-14 12:00 | NUR ---
was c/o of some foot pain but it got better, medicated with tylenol 1000mg po, has ordered lunch
--- NOTE | 2023-12-14 13:21 | NUR ---
Controls Designer was advised by Hospitalist that patient has been declined by placements due to lack of ostomy supplies. Per Gina, [employer] supplies can be provided and sent with patient. SW contacted the [facility] and provided that update to the therapist working on placement.
--- NOTE | 2023-12-14 13:30 | NUR ---
states is feeling a little shakey and would like his blood sugar checked, it is now 80, given metamucil in apple juice and provided an orange juice per his request
--- NOTE | 2023-12-14 16:00 | NUR ---
called and had some leaking around wafer, assisted him with changing wafer and bag, has continuous loose stool from colostomy site,
--- NOTE | 2023-12-14 16:30 | NUR ---
patient requesting to take a shower and clean area around stoma and replace, assisted up into shower, back to bed and all colostomy wafer and bag changed by patient
--- NOTE | 2023-12-14 17:30 | NUR ---
discharged per WC in custody of [facility] team, patient was pleasant and coopertive at time of discharge
--- NOTE | 2023-12-14 17:42 | NUR ---
report called and given to nurse at [facility]
[2023-12-18] MEDS ORDERED: predniSONE 10 MG TAB PO SCH (08:00)
== END 2023-12-14 17:30 | DRG 918 ==
LOC: COL.ER 10:29 → ICU 12:39 → MEDICAL 12:39 → ICU 13:56 → MEDICAL 12-11 16:50
PROVIDERS: Hospitalist; Nurse Practitioner; ADMIT Internal Medicine
DX: T38.3X2A Poisoning by insulin and oral hypoglycemic [antidiabetic] drugs, intentional self-harm, initial encounter (principal); K21.9 Gastro-esophageal reflux disease without esophagitis; E10.9 Type 1 diabetes mellitus without complications; Z79.4 Long term (current) use of insulin; E87.5 Hyperkalemia; F19.10 Other psychoactive substance abuse, uncomplicated; F41.9 Anxiety disorder, unspecified; G25.81 Restless legs syndrome; I48.91 Unspecified atrial fibrillation; F32.A Depression, unspecified; G89.29 Other chronic pain; K58.0 Irritable bowel syndrome with diarrhea
CPT/HCPCS: A9270; J1815; J3475; J7030; J7512

== ENCOUNTER 2023-12-29 14:16 | Emergency (ER) | payer MEDICAID ==
[~2023-12-29] VITALS: Ht 175.3 cm; Wt 63.6 kg
[~2023-12-29 14:16] MED LIST changes: +ATARAX 25MG25 MG/TAB PO; +BUSPAR5 MG PO; +CORDARONE200 MG/TAB PO; +GAS RELIEF 8080 MG PO; +HUMALOG PEN100 U/ML SQ; +IMODIUM 2MG CAPS2 MG PO; +INSULIN LI100 UNIT/2 SQ; +LANTUS SOLOS100 U/ML SQ; +LOMOTIL 0.025 M1 TAB PO; +METAMUCIL3.4 GM/DOS PO; +NEURONTIN300 MG/CAP PO; +NICODERM C21 MG/PATC TD; +NICORETTE4 MG PO; +PREDNISONE20 MG PO; +REMERON 15M15 MG/TA1 PO; +REQUIP 0.5MG0.5 MG PO; +ROBAXIN 75750 MG/TAB PO; +SEPTRA DS 8001 TAB PO; +SEROQUEL 2525 MG/TAB PO; +VOLTAREN GEL 1%1 TU TP; +XIFAXAN550 MG PO
[2023-12-29 14:22] VITALS: TEMP 97.7
[2023-12-29] MEDS ORDERED: NS 1,000 ML IV ONE ×2 (17:45→19:15)
[2023-12-29 18:03] LABS: COLLECTION METHOD CLEAN CATCH
[2023-12-29 18:11] LABS: PH 5.5 (5.0-8.5); URINE APPEARANCE CLEAR (CLEAR/HAZY); URINE BLOOD NEGATIVE (NEGATIVE); URINE COLOR YELLOW (YELLOW); URINE GLUCOSE NEGATIVE (NEGATIVE); URINE KETONE TRACE (NEGATIVE); URINE NITRATE NEGATIVE (NEGATIVE); URINE PROTEIN(semi-quant) 1+ (NEGATIVE); URINE UROBILINOGEN 0.2 E.U/dL (0.2-1.0)
[2023-12-29 18:16] LABS: TRICYCLIC ANTIDEPRESS URINE NEGATIVE (NEGATIVE)
[2023-12-29 18:22] LABS: BASO # 0.1 K/mm3 (0.0-0.2); BASO % 0.4 % (0.0-2.0); EOS # 0.1 K/mm3 (0.0-0.7); EOS % 0.4 % (0.0-4.0); GRAN # 10.6 K/mm3 (1.4-6.5); GRAN % 76.8 % (42.2-75.2); LYMPH # 2.2 K/mm3 (1.2-3.4); LYMPH % 15.7 % (20.0-51.0); MEAN CELL VOLUME 79 fl (80.0-100.0); MEAN CORPUSCULAR HGB CONC 35 g/dl (33.0-37.0); MEAN PLATELET VOLUME 8.1 fl (7.4-10.4); MONO # 0.9 K/mm3 (0.1-0.6); MONO % 6.2 % (1.7-9.3); PLATELET COUNT 408 K/mm3 (130-400); REDCELL DISTRIBUTION WIDTH-CV 20.2 % (11.5-14.5)
[2023-12-29 18:23] LABS: HEMOGLOBIN 18.3 g/dl (13.5-18.0); MEAN CORPUSCULAR HEMOGLOBIN 27 pg (27-31)
[2023-12-29 18:51] LABS: ALANINE AMINOTRANSFERASE 27 U/L (0-55); ALKALINE PHOSPHATASE 198 U/L (40-150); ANION GAP 16 mmol/L (7-16); AST,SGOT 19 U/L (5-34); BILIRUBIN,TOTAL 0.4 mg/dL (0.2-1.2); BLOOD UREA NITROGEN 27 mg/dL (9-21); CALCIUM 10.2 mg/dL (8.4-10.2); CHLORIDE 95 mEq/L (98-107); CREATININE, serum 1.23 mg/dL (0.72-1.25); GLUCOSE 307 mg/dL (70-99); LIPASE 10 U/L (8-78); POTASSIUM 4.8 mEq/L (3.5-4.5); SODIUM 130 mEq/L (136-145); TOTAL PROTEIN 7.7 g/dl (6.2-8.1)
[2023-12-29 18:52] LABS: TROPONIN-I < 0.010 ng/mL (0.00-0.033)
[2023-12-29] MEDS ORDERED: NS 100 ML IV ONE (19:40)
[2023-12-29] MEDS ORDERED: Iohexol 300 - 100 ML VIAL IV ONE (19:40)
[2023-12-29] MEDS ORDERED: Insulin Regular Human (NovoLIN R/HumuLIN R) IV ONE ×2 (20:45→21:30)
[2023-12-29 22:40] VITALS: BP 126/40; PULSE 78
== END 2023-12-29 22:40 | disposition home or self-care (01) ==
LOC: COL.ER 14:16
PROVIDERS: Nurse Practitioner Primary Care
DX: E10.10 Type 1 diabetes mellitus with ketoacidosis without coma (principal); F17.210 Nicotine dependence, cigarettes, uncomplicated; Z89.411 Acquired absence of right great toe
CPT/HCPCS: J1815; J7030; Q9967